=== PATIENT | male | born 1955 ===

== ENCOUNTER → 2023-05-22 09:47 | Outpatient (REF) | payer OTHER, SELFPAY ==
[2023-05-22 10:54] LABS: % Basophils 0.4 % (0-2); % Eosinophils 1.3 % (0-6); % Immature Granulocytes 0.2 % (0-0.5); % Lymphocytes 22.3 % (20.5-51.1); % Monocytes 7.1 % (1.7-9.3); % Neutrophils 68.7 % (42.2-75.2); Absolute Eosinophils 0.1 10^3/uL (0-0.7); Absolute Lymphocytes 1.2 10^3/uL (1.2-3.4); Absolute Monocytes 0.4 10^3/uL (0.1-0.6); Absolute Neutrophils 3.6 10^3/uL (1.4-6.5); Hematocrit 37.6 % (39.0-52.0); Hemoglobin 12.9 g/dL (13.0-18.0); Mean Corp Hgb Conc. 34.3 g/dL (33.0-37.0); Mean Corpuscular Hgb 33.2 pg (27.0-31.0); Mean Corpuscular Volume 96.7 fL (80.0-94.0); Mean Platelet Volume 12.9 fL (7.4-10.4); Nucleated Red Blood Cells % 0 % (-); Platelet Count 146 10^3/uL (130-400); Red Blood Cell Count 3.89 10^6/uL (4.70-6.10); Red Cell Dist. Width 12.8 % (11.5-14.5); White Blood Cell Count 5.2 10^3/uL (4.8-10.8)
[2023-05-22 11:30] LABS: ALT (SGPT) < 10 U/L (0-50); AST (SGOT) 25 U/L (17-59); Albumin 3.2 g/dl (3.5-5.0); Alkaline Phosphatase 72 U/L (38-126); Blood Urea Nitrogen 16 mg/dl (9-20); Carbon Dioxide 25 mmol/L (22-30); Chloride 108 mmol/L (98-107); Glucose 86 mg/dl (70-99); Sodium 140 mmol/L (135-145); Total Bilirubin 0.9 mg/dl (0.2-1.3); Total Protein 5.6 g/dl (6.3-8.2); eGFR > 60.00
[2023-05-22 11:59] LABS: TSH 1.48 uIU/ml (0.47-4.68)
== END ==
LOC: OLABPATH 09:47
PROVIDERS: ATTENDING PHYSICIAN Internal Medicine
DX: E03.0 Congenital hypothyroidism with diffuse goiter (principal); G31.84 Mild cognitive impairment of uncertain or unknown etiology; D69.6 Thrombocytopenia, unspecified
CPT/HCPCS: 36415; 80053; 84443; 85025

== ENCOUNTER → 2023-08-21 12:32 | Outpatient (REF) | payer MEDICARE, SELFPAY ==
[2023-08-21 12:54] LABS: % Basophils 0.5 % (0-2); % Immature Granulocytes 0.2 % (0-0.5); % Lymphocytes 18.7 % (20.5-51.1); % Monocytes 7.6 % (1.7-9.3); Absolute Eosinophils 0.1 10^3/uL (0-0.7); Absolute Lymphocytes 0.8 10^3/uL (1.2-3.4); Absolute Monocytes 0.3 10^3/uL (0.1-0.6); Absolute Neutrophils 2.9 10^3/uL (1.4-6.5); Hematocrit 39.2 % (39.0-52.0); Hemoglobin 13.9 g/dL (13.0-18.0); Mean Corp Hgb Conc. 35.5 g/dL (33.0-37.0); Mean Corpuscular Hgb 33.6 pg (27.0-31.0); Mean Corpuscular Volume 94.7 fL (80.0-94.0); Mean Platelet Volume 12.3 fL (7.4-10.4); Nucleated Red Blood Cells % 0 % (-); Platelet Count 141 10^3/uL (130-400); Red Blood Cell Count 4.14 10^6/uL (4.70-6.10); Red Cell Dist. Width 13.2 % (11.5-14.5); White Blood Cell Count 4.1 10^3/uL (4.8-10.8)
[2023-08-21 13:08] LABS: ALT (SGPT) < 10 U/L (0-50); AST (SGOT) 25 U/L (17-59); Albumin 3.4 g/dl (3.5-5.0); Alkaline Phosphatase 98 U/L (38-126); Blood Urea Nitrogen 16 mg/dl (9-20); Calcium 8.8 mg/dl (8.4-10.2); Carbon Dioxide 25 mmol/L (22-30); Chloride 110 mmol/L (98-107); Glucose 110 mg/dl (70-99); Potassium 3.7 mmol/L (3.5-5.1); Sodium 140 mmol/L (135-145); Total Bilirubin 0.5 mg/dl (0.2-1.3); Total Protein 5.8 g/dl (6.3-8.2); eGFR > 60.00
[2023-08-21 13:17] LABS: Prealbumin (Transthyretin) 21.2 mg/dl (17.6-36.0)
== END ==
LOC: OLABPATH 12:32
PROVIDERS: ATTENDING PHYSICIAN Internal Medicine
DX: E03.9 Hypothyroidism, unspecified (principal); E78.5 Hyperlipidemia, unspecified
CPT/HCPCS: 36415; 80053; 84134; 84443; 85025

== ENCOUNTER → 2024-01-01 10:16 | Outpatient (REF) | payer MEDICARE, SELFPAY ==
[2024-01-01 10:50] LABS: % Basophils 0.2 % (0-2); % Eosinophils 0.4 % (0-6); % Immature Granulocytes 0.4 % (0-0.5); % Lymphocytes 6.7 % (20.5-51.1); % Monocytes 4.9 % (1.7-9.3); % Neutrophils 87.4 % (42.2-75.2); Absolute Lymphocytes 0.6 10^3/uL (1.2-3.4); Absolute Monocytes 0.5 10^3/uL (0.1-0.6); Hematocrit 35.6 % (39.0-52.0); Hemoglobin 12.2 g/dL (13.0-18.0); Mean Corp Hgb Conc. 34.3 g/dL (33.0-37.0); Mean Corpuscular Hgb 34.2 pg (27.0-31.0); Mean Corpuscular Volume 99.7 fL (80.0-94.0); Mean Platelet Volume 12.1 fL (7.4-10.4); Nucleated Red Blood Cells % 0 % (-); Platelet Count 270 10^3/uL (130-400); Red Blood Cell Count 3.57 10^6/uL (4.70-6.10); Red Cell Dist. Width 13.1 % (11.5-14.5); White Blood Cell Count 9.1 10^3/uL (4.8-10.8)
[2024-01-01 10:59] LABS: ALT (SGPT) < 10 U/L (0-50); AST (SGOT) 22 U/L (17-59); Albumin 2.8 g/dl (3.5-5.0); Alkaline Phosphatase 96 U/L (38-126); Blood Urea Nitrogen 19 mg/dl (9-20); Calcium 7.9 mg/dl (8.4-10.2); Carbon Dioxide 30 mmol/L (22-30); Chloride 102 mmol/L (98-107); Glucose 82 mg/dl (70-99); Potassium 3.5 mmol/L (3.5-5.1); Sodium 140 mmol/L (135-145); Total Bilirubin 1.1 mg/dl (0.2-1.3); Total Protein 5.2 g/dl (6.3-8.2); eGFR > 60.00
[2024-01-01 11:27] LABS: TSH 1.39 uIU/ml (0.47-4.68)
== END ==
LOC: OLABPATH 10:16
PROVIDERS: ATTENDING PHYSICIAN Internal Medicine
DX: R94.6 Abnormal results of thyroid function studies (principal); R68.89 Other general symptoms and signs; Z13.228 Encounter for screening for other metabolic disorders
CPT/HCPCS: 36415; 80053; 84443; 85025

== ENCOUNTER → 2024-01-06 09:47 | Outpatient (REF) | payer MEDICARE, SELFPAY ==
[2024-01-06 10:32] LABS: % Basophils 0.2 % (0-2); % Eosinophils 1.1 % (0-6); % Immature Granulocytes 0.5 % (0-0.5); % Lymphocytes 15.7 % (20.5-51.1); % Monocytes 6.9 % (1.7-9.3); % Neutrophils 75.6 % (42.2-75.2); Absolute Eosinophils 0.1 10^3/uL (0-0.7); Absolute Lymphocytes 0.9 10^3/uL (1.2-3.4); Absolute Monocytes 0.4 10^3/uL (0.1-0.6); Absolute Neutrophils 4.2 10^3/uL (1.4-6.5); Hematocrit 39.5 % (39.0-52.0); Hemoglobin 12.8 g/dL (13.0-18.0); Mean Corp Hgb Conc. 32.4 g/dL (33.0-37.0); Mean Corpuscular Hgb 32.7 pg (27.0-31.0); Mean Corpuscular Volume 100.8 fL (80.0-94.0); Mean Platelet Volume 11.8 fL (7.4-10.4); Nucleated Red Blood Cells % 0 % (-); Platelet Count 402 10^3/uL (130-400); Red Blood Cell Count 3.92 10^6/uL (4.70-6.10); White Blood Cell Count 5.5 10^3/uL (4.8-10.8)
[2024-01-06 10:49] LABS: ALT (SGPT) 10 U/L (0-50); AST (SGOT) 25 U/L (17-59); Albumin 2.9 g/dl (3.5-5.0); Alkaline Phosphatase 98 U/L (38-126); Blood Urea Nitrogen 16 mg/dl (9-20); Calcium 8.5 mg/dl (8.4-10.2); Carbon Dioxide 27 mmol/L (22-30); Chloride 105 mmol/L (98-107); Glucose 88 mg/dl (70-99); Potassium 4.3 mmol/L (3.5-5.1); Sodium 142 mmol/L (135-145); Total Bilirubin 0.8 mg/dl (0.2-1.3); Total Protein 5.6 g/dl (6.3-8.2); eGFR > 60.00
== END ==
LOC: OLABPATH 09:47
PROVIDERS: ATTENDING PHYSICIAN Internal Medicine
DX: Z13.220 Encounter for screening for lipoid disorders (principal); R68.89 Other general symptoms and signs
CPT/HCPCS: 36415; 80053; 85025

== ENCOUNTER 2024-03-19 21:38 | Inpatient (IN) | payer MEDICARE, SELFPAY ==
--- NOTE | 2024-03-19 19:00 | ED.GENMED ---
History of Present Illness
<LAVONNE Snow - Last Filed: 03/20/24 03:01>
General
Chief Complaint: Fever
Source: patient
Exam Limitations: none
Time Seen by Provider: 03/19/24 18:49
Nursing documentation reviewed up to this point in time: agreed with
History of Present Illness
History of Present Illness:
68 yr old male sent from the [facility] for fevers of 100.2 vomiting(4 episodes on Saturday) weakness rigors. Pt has a hx of hypothyroidism BPH mild neurocognitive disorder, Parkinsons .
Nurse reports he has not had any tylenol /motrin for fever.
Patient is able to nod his head yes and no however not able to give history. Patient is not ambulatory. Brother at bedside.
Review of Systems
<LAVONNE Snow - Last Filed: 03/20/24 03:01>
Review of Systems
Allergies reviewed?: Yes
Other source history: family and retirement
All Other Systems: ROS reviewed and negative except as documented in HPI and ROS
Constitutional: Reports fever and chills
EENT: Reports no symptoms
Respiratory: Reports cough
Cardiac: Reports no symptoms
ABD/GI: Reports nausea, vomiting and diarrhea
Musculoskeletal: Reports no symptoms
Skin: Reports no symptoms
Psychiatric: Reports no symptoms
Phy Exam
<LAVONNE Snow - Last Filed: 03/20/24 03:01>
General Physical Exam
General Presentation: moderate distress
General age: appears stated age
General Skin: warm and dry
General Habitus: elderly
General Mental: alert
General Hydration: dry mucous membranes
Cardiovascular Exam
Cardiovascular Exam: tachycardia
Pulmonary Exam
Pulmonary Exam: lungs clear and other (+ cough , + hypoxic on room air )
Gastrointestinal Exam
Gastrointestinal Exam: non tender and soft
Neurological Exam
Neurological Exam: alert and other (Awake alert tries to answer questions yes or no answers shakes his head accordingly, follows commands)
Musculoskeletal Exam
Musculoskeletal Exam: full ROM
Skin Exam
Skin Exam: normal color and warm/dry
Psychiatric Exam
Psychiatric Exam: normal mood/affect
Course
<LAVONNE Snow - Last Filed: 03/20/24 03:01>
Orders/Labs/Results
Orders:
Orders
03/19/24 Dinner
Regular
At Your Request: Limited, Trial Court Judge Required
03/19/24 18:58
COVID-19 Antigen Urgent
Source: Nasal Swab
Complete Blood Count/With Diff Urgent
Comprehensive Metabolic Panel Urgent
Manual Differential Urgent
Influenza A+B Rapid Molecular Urgent
CAESAR Source: Nasal Swab
Specimen Description:
Date Specimen was Collected: 03/19/24
Time Specimen was Collected: 18:47
03/19/24 19:02
Chest X-ray Portable [CR Chest Portable - 1 View] Urgent
Comment:
Reason For Exam: hypoxic
Reason Study Needs to be Portable: Patient Unstable
03/19/24 19:05
Lactic Acid Urgent
03/19/24 19:07
Acetaminophen [Tylenol] 650 mg PO NOW STA
03/19/24 19:20
Acetaminophen [Tylenol/Feverall] 650 mg .ROUTE .STK-MED ONE
03/19/24 19:23
0.9% Sodium Chloride 1000 ml [Nss] 1,000 ml IV BOLUS
03/19/24 19:24
0.9% Sodium Chloride 1000 ml [Nss] 1,000 ml IV BOLUS
03/19/24 19:33
Acetaminophen [Tylenol/Feverall] 325 mg RECTAL NOW STA
03/19/24 20:11
Oseltamivir [Tamiflu] 75 mg PO NOW STA
03/19/24 20:52
Electrocardiogram (*1) Stat
Reason for Study: Other
Other Reason for Exam: chest pain
EKG- Treatment ONCE
03/19/24 21:07
Admit/Transfer Patient As Directed
Co-Sign Provider:
Level of Care: Inpatient admission
Assign to:: IMU- Intermediate Care
Physician / Group: julia
Diagnosis: influenza
Reason for Hospitalization: influenza
Expected length of stay greater than two midnights?: Yes
ELOS- Estimated Length of Stay in days: 2
I certify the patient meets the requirements for IP care: Yes
03/19/24 21:08
PRN Pain Medication Management As Directed
May give lesser potent ordered pain med per pt: Yes
preference::
Protocol:: Medication orders for pain may be administered in a
manner that supports deferring to patient preference
when the pt is:
- Requesting an ordered lesser potent pain medication.
Least to most potent pain medications are defined
as: acetaminophen < NSAID < tramadol < opioids
(morphine, oxycodone, hydromorphone).
- Requesting a lesser dose of the same medication IF
ORDERED.
- Requesting a less intrusive route of administration
if both routes are prescribed by the provider (PO <
IV).
03/19/24 21:09
Code Status As Directed
Resuscitation Status: Do not resuscitate
Reached after discussion with pt or family/Healthcare POA: Yes
DNR Bracelet Application ONCE
03/19/24 21:19
Blood Culture Q30M
CAESAR Source: Blood/Venous
Specimen Description:
Blood Culture Q30M
CAESAR Source: Blood/Venous
Specimen Description:
03/19/24 22:32
0.9% Sodium Chloride 1000 ml [Nss] 1,000 ml IV 100 mls/hr
Acetaminophen [Tylenol] 650 mg PO Q4HPRN PRN
Ondansetron Injectable [Zofran] 4 mg IV Q6HPRN PRN
03/19/24 22:32
Activity As Directed
Activity Level: As Tolerated
Vital Signs As Directed
Frequency: Per unit guidelines
DX Deep Vein Thrombosis Video Routine
03/20/24 06:00
Complete Blood Count/With Diff IN AM
Comprehensive Metabolic Panel IN AM
03/20/24 08:00
Heparin 5,000 units SC Q12
Oseltamivir Phosphate [Tamiflu] 75 mg PO BID
Abnormal Lab Results
03/19/24 03/19/24
18:58 19:05
WBC 3.6 L 10^3/uL
(4.8-10.8)
MCV 96.7 H fL
(80.0-94.0)
MCH 32.9 H pg
(27.0-31.0)
MPV 11.6 H fL
(7.4-10.4)
Absolute Lymphs (auto) 0.2 L 10^3/uL
(1.2-3.4)
Immature Gran % 0.6 H %
(0-0.5)
Neutrophils % 90.0 H %
(42.2-75.2)
Lymphocytes % 5.5 L %
(20.5-51.1)
Segmented Neutrophils 79 H %
(42-75)
Band Neutrophils 10 H %
(0-3)
Lymphocytes (Manual) 6 L %
(20-51)
Chloride 97 L mmol/L
(98-107)
BUN 27 H mg/dl
(9-20)
Glucose 138 H mg/dl
(70-99)
Lactic Acid 3.4 H mmol/L
(0.7-2.0)
Total Bilirubin 1.9 H mg/dl
(0.2-1.3)
AST 70 H U/L
(17-59)
03/19/24 18:58
03/19/24 18:58
Vital Signs
Initial and Last Documented VS:
Initial Vital Signs
Temp Pulse Resp Pulse Ox
99.7 F 145 18 79
03/19/24 18:38 03/19/24 18:38 03/19/24 18:38 03/19/24 18:38
Last Documented Vital Signs
Temp Pulse Resp BP Pulse Ox
100.1 F 116 31 138/77 92
03/20/24 01:00 03/20/24 01:45 03/20/24 01:45 03/20/24 01:00 03/20/24 02:39
Shrimp Picker consulted with Physician
Shrimp Picker consulted with physician?: Yes
Name of Physician Consulted: Wiley
<Vishnu Jama MD - Last Filed: 03/19/24 19:45>
Orders/Labs/Results
Orders:
Orders
03/19/24 Dinner
Regular
At Your Request: Limited, Trial Court Judge Required
03/19/24 18:58
COVID-19 Antigen Urgent
Source: Nasal Swab
Complete Blood Count/With Diff Urgent
Comprehensive Metabolic Panel Urgent
Manual Differential Urgent
Influenza A+B Rapid Molecular Urgent
CAESAR Source: Nasal Swab
Specimen Description:
Date Specimen was Collected: 03/19/24
Time Specimen was Collected: 18:47
03/19/24 19:02
Chest X-ray Portable [CR Chest Portable - 1 View] Urgent
Comment:
Reason For Exam: hypoxic
Reason Study Needs to be Portable: Patient Unstable
03/19/24 19:05
Lactic Acid Urgent
03/19/24 19:07
Acetaminophen [Tylenol] 650 mg PO NOW STA
03/19/24 19:20
Acetaminophen [Tylenol/Feverall] 650 mg .ROUTE .STK-MED ONE
03/19/24 19:23
0.9% Sodium Chloride 1000 ml [Nss] 1,000 ml IV BOLUS
03/19/24 19:24
0.9% Sodium Chloride 1000 ml [Nss] 1,000 ml IV BOLUS
03/19/24 19:33
Acetaminophen [Tylenol/Feverall] 325 mg RECTAL NOW STA
03/19/24 20:11
Oseltamivir [Tamiflu] 75 mg PO NOW STA
03/19/24 20:52
Electrocardiogram (*1) Stat
Reason for Study: Other
Other Reason for Exam: chest pain
EKG- Treatment ONCE
03/19/24 21:07
Admit/Transfer Patient As Directed
Co-Sign Provider:
Level of Care: Inpatient admission
Assign to:: IMU- Intermediate Care
Physician / Group: julia
Diagnosis: influenza
Reason for Hospitalization: influenza
Expected length of stay greater than two midnights?: Yes
ELOS- Estimated Length of Stay in days: 2
I certify the patient meets the requirements for IP care: Yes
03/19/24 21:08
PRN Pain Medication Management As Directed
May give lesser potent ordered pain med per pt: Yes
preference::
Protocol:: Medication orders for pain may be administered in a
manner that supports deferring to patient preference
when the pt is:
- Requesting an ordered lesser potent pain medication.
Least to most potent pain medications are defined
as: acetaminophen < NSAID < tramadol < opioids
(morphine, oxycodone, hydromorphone).
- Requesting a lesser dose of the same medication IF
ORDERED.
- Requesting a less intrusive route of administration
if both routes are prescribed by the provider (PO <
IV).
03/19/24 21:09
Code Status As Directed
Resuscitation Status: Do not resuscitate
Reached after discussion with pt or family/Healthcare POA: Yes
DNR Bracelet Application ONCE
03/19/24 21:19
Blood Culture Q30M
CAESAR Source: Blood/Venous
Specimen Description:
Blood Culture Q30M
CAESAR Source: Blood/Venous
Specimen Description:
03/19/24 22:32
0.9% Sodium Chloride 1000 ml [Nss] 1,000 ml IV 100 mls/hr
Acetaminophen [Tylenol] 650 mg PO Q4HPRN PRN
Ondansetron Injectable [Zofran] 4 mg IV Q6HPRN PRN
03/19/24 22:32
Activity As Directed
Activity Level: As Tolerated
Vital Signs As Directed
Frequency: Per unit guidelines
DX Deep Vein Thrombosis Video Routine
03/20/24 06:00
Complete Blood Count/With Diff IN AM
Comprehensive Metabolic Panel IN AM
03/20/24 08:00
Heparin 5,000 units SC Q12
Oseltamivir Phosphate [Tamiflu] 75 mg PO BID
Abnormal Lab Results
03/19/24 03/19/24
18:58 19:05
WBC 3.6 L 10^3/uL
(4.8-10.8)
MCV 96.7 H fL
(80.0-94.0)
MCH 32.9 H pg
(27.0-31.0)
MPV 11.6 H fL
(7.4-10.4)
Absolute Lymphs (auto) 0.2 L 10^3/uL
(1.2-3.4)
Immature Gran % 0.6 H %
(0-0.5)
Neutrophils % 90.0 H %
(42.2-75.2)
Lymphocytes % 5.5 L %
(20.5-51.1)
Segmented Neutrophils 79 H %
(42-75)
Band Neutrophils 10 H %
(0-3)
Lymphocytes (Manual) 6 L %
(20-51)
Chloride 97 L mmol/L
(98-107)
BUN 27 H mg/dl
(9-20)
Glucose 138 H mg/dl
(70-99)
Lactic Acid 3.4 H mmol/L
(0.7-2.0)
Total Bilirubin 1.9 H mg/dl
(0.2-1.3)
AST 70 H U/L
(17-59)
03/19/24 18:58
03/19/24 18:58
Vital Signs
Initial and Last Documented VS:
Initial Vital Signs
Temp Pulse Resp Pulse Ox
99.7 F 145 18 79
03/19/24 18:38 03/19/24 18:38 03/19/24 18:38 03/19/24 18:38
Last Documented Vital Signs
Temp Pulse Resp BP Pulse Ox
100.1 F 116 31 138/77 92
03/20/24 01:00 03/20/24 01:45 03/20/24 01:45 03/20/24 01:00 03/20/24 02:39
<LAVONNE Snow - Last Filed: 03/20/24 03:01>
MDM/Problems Addressed
Differential Diagnosis Includes:
Not limited to pneumonia, COVID, influenza, norovirus, sepsis, dehydration
MDM/Problems Addressed:
Patient is a 68-year-old male with history of Parkinson's memory issues from the retirement presents for fevers and vomiting which started Saturday. Patient presented with obvious rigors found to have a fever of 105.5 rectally. Patient was not
given Tylenol or Motrin prior to arrival. Patient is able to shake his head for yes or no answers. He does have an audible cough he denies shortness of breath however presents tachycardic and hypoxic. Patient was given Tylenol both orally and
rectally he did have difficulty initially swallowing oral Tylenol and therefore rectal was given. Patient was found to be influenza positive with a white count of 3.6. His lactate was found to be 3.4 with an elevated BUN of 27. Sepsis fluids
were initiated. PT was evaluated by DR Jama . With pt's hypoxia, mid flow was ordered.
Pt did improve after tylenol, rigors improved. Tachycardia did improve though still tachycardic. X-ray reviewed no obvious infiltrate
Pt still hypoxic at 85 % on 15 l Midflow. d/c with DR Jama will increase to high Flow.
Patient admitted to the hospitalist service to the ICU. Brother at bedside reviewed all findings with brother. Not limited to
<LAVONNE Snow - Last Filed: 03/20/24 03:01>
*Radiology
Radiology exam reviewed: radiology read reviewed
*Pulse Oximetry
Patient hypoxic: yes
*Critical Care Note
Total Time (30-74mins, 75-104mins- exclusive of procedures): Not Applicable
ED Attending Note
<LAVONNE Snow - Last Filed: 03/20/24 03:01>
-
Portions of this chart may have been created with voice recognition software.� Occasional wrong word or��sound alike� substitutions may have occurred due to the inherent limitations of voice recognition software.
<Vishnu Jama MD - Last Filed: 03/19/24 19:45>
ED Attending Note
Patient seen and examined by attending physician: Yes
ED Attending Note:
Patient with history of dementia and Parkinson's disease, presents to ED secondary to sudden onset of fever, chills, rigors, and decreased appetite, along with intermittent cough, upon waking up this morning. 3 days ago, patient had brief episode
of multiple vomiting episodes, which resolved spontaneously. Denies nausea, vomiting, or diarrhea. Denies headache. Denies sore throat. Denies back pain. Denies leg pain or swelling. Denies sick contact.
Physical Exam
General: moderate distress, acutely ill. febrile. tachycardic
Head: nc/at. eomi
Neck: supple. no meningeal signs.
Heart: tachycardic, no murmur.
Lungs: mild respiratory distress. clear bilaterally
Abdomen: normal bowel sounds. not tender.
Neuro: alert and oriented x 2. no focal neurological deficits
Skin: no rash
Psychiatric: well kept. interactive and cooperative
Extremities: no edema. no calf tenderness.
History and exam consistent with hypoxia, likely second to influenza. Secondary to significant hypoxia not responding to supplemental oxygen via nasal cannula, patient placed on mid flow oxygen, with improvement. Patient will be started on Tamiflu
and be admitted for further evaluation and treatment.
Discharge Plan
Departure
Patient Disposition: Admit
Date of Disposition: 03/19/24
Time of Disposition: 20:46
Admit to: ICU
Admit to doctor: hospitalist
Presentation/result/management discussed w/ accepting MD/DO: Hospitalist
Patient with high blood pressure during this ER visit?: No
Condition: Fair
Covid-19: Negative COVID-19
Discharge Problem:
Influenza A, hypoxia
Interventions
Interventions:
*Risk Screen - Suicide Last Done: 03/19/24 19:46
*General Assessment Last Done: 03/19/24 18:46
*Neglect/Abuse Screening Last Done: 03/19/24 19:46
*ED COVID-19 Vaccine History Last Done: 03/19/24 19:46
ED- Neurological Assessment Last Done: 03/19/24 19:45
ED-Skin Assessment Last Done: 03/19/24 18:45
[2024-03-19 19:15] VITALS: BMI 22.0
[2024-03-19] MEDS: NSS 1000 IV ×3 (19:25→22:54)
[2024-03-19 19:26] LABS: ALT (SGPT) 12 U/L (0-50); AST (SGOT) 70 U/L (17-59); Albumin 4.4 g/dl (3.5-5.0); Alkaline Phosphatase 80 U/L (38-126); Blood Urea Nitrogen 27 mg/dl (9-20); COVID-19 Antigen Negative (Negative); Calcium 9.6 mg/dl (8.4-10.2); Carbon Dioxide 28 mmol/L (22-30); Chloride 97 mmol/L (98-107); Estimated Creatinine Clearance 75 ml/min; Glucose 138 mg/dl (70-99); Sodium 135 mmol/L (135-145); Total Bilirubin 1.9 mg/dl (0.2-1.3); Total Protein 7.4 g/dl (6.3-8.2); eGFR > 60.00
[2024-03-19 19:29] LABS: Lactic Acid 3.4 mmol/L (0.7-2.0)
[2024-03-19] MEDS: TYLENOL 325 MG PO (19:31)
[2024-03-19 19:37] LABS: Absolute Neutrophils -Man Diff 3.2 10^3/uL (1.4-6.5); Band Neutrophils 10 % (0-3); Hematocrit 50.6 % (39.0-52.0); Hemoglobin 17.2 g/dL (13.0-18.0); Lymphocytes 6 % (20-51); Mean Corpuscular Hgb 32.9 pg (27.0-31.0); Mean Corpuscular Volume 96.7 fL (80.0-94.0); Mean Platelet Volume 11.6 fL (7.4-10.4); Monocytes 5 % (2-9); Platelet Count 160 10^3/uL (130-400); Red Blood Cell Count 5.23 10^6/uL (4.70-6.10); Red Cell Dist. Width 14.2 % (11.5-14.5); Segmented Neutrophils 79 % (42-75); White Blood Cell Count 3.6 10^3/uL (4.8-10.8)
[2024-03-19 19:38] LABS: Normal RBC Morphology No; Platelets Checked Yes
[2024-03-19 19:39] LABS: % Basophils 0.6 % (0-2); % Immature Granulocytes 0.6 % (0-0.5); % Lymphocytes 5.5 % (20.5-51.1); % Monocytes 3.3 % (1.7-9.3); Absolute Lymphocytes 0.2 10^3/uL (1.2-3.4); Absolute Monocytes 0.1 10^3/uL (0.1-0.6); Absolute Neutrophils 3.3 10^3/uL (1.4-6.5); Anisocytosis 1+; Nucleated Red Blood Cells % 0 % (-); Polychromasia Slight; Total Cells Counted 100
[2024-03-19] MEDS: TYLENOL/FEVERALL 325 MG RECTAL (19:43)
[2024-03-19] MEDS: TAMIFLU 75 MG PO (20:44)
[2024-03-19 20:47] VITALS: BP 115/67
[2024-03-19 21:00] VITALS: BP 124/101
--- NOTE | 2024-03-19 21:12 | HPS.HSE ---
Family Physician
-
Family Physician: Jeremiah Knight
Chief Complaint
-
fever
History of Present Illness
fever, vomiting
Medical History
Past Medical History
Past Medical History: Reports Other ( memory impairment, Parkinson's disease, hypothyroidism, BPH, hypercholesteremia)
Past Surgical History: Reports None
Social History
Tobacco: Non-smoker
Alcohol: None
Drug: None
Family History
Family History: Not pertinent
Allergies / Home Medications
Allergies reflects when Allergies were last updated in [employer].
Home Medications with original date entered in [employer]
Allergy/Medication List:
Allergies
Allergy/AdvReac Type Severity Reaction Status Date / Time
No Known Allergies Allergy Verified 03/19/24 18:46
Review of Systems
-
History Source: Patient
A 12 point ROS was completed and negative except as noted: Yes
Constitutional: Reports No Symptoms
EENT: Reports No Symptoms
Respiratory: Reports No Symptoms
Cardiac: Reports No Symptoms
Abdomen/GI: Reports No Symptoms
: Reports No Symptoms
Musculoskeletal: Reports No Symptoms
Skin: Reports No Symptoms
Neurological: Reports No Symptoms
Endocrine: Reports No Symptoms
Hematologic/Lymphatic: Reports No Symptoms
Psych: Reports No Symptoms
Physical Exam
Vital Signs
Vital Signs
Temp Pulse Resp BP Pulse Ox
105.5 F H 128 27 115/67 87
03/19/24 18:57 03/19/24 20:45 03/19/24 20:45 03/19/24 20:47 03/19/24 20:45
Physical Exam
General: Well Developed, Well Nourished and No Apparent Distress
HEENT: NormoCephalic, Moist mucous membranes and Atraumatic
Respiratory: Clear
Cardiac: S1/S2 and Regular Rhythm; No Murmur or Rub
GI: Soft, Non Tender, Non Distended and Normal Bowel Sounds; No Organomegaly
Rectal: Deferred by Provider
Musculoskeletal: No Clubbing, No Cyanosis and No Edema
Skin: No Rash
Neuro: Nonfocal/grossly intact
Laboratory Results
-
03/19/24 18:58
03/19/24 18:58
Laboratory Results
Lactic Acid 3.4 mmol/L (0.7-2.0) H 03/19/24 19:05
Total Bilirubin 1.9 mg/dl (0.2-1.3) H 03/19/24 18:58
AST 70 U/L (17-59) H 03/19/24 18:58
ALT 12 U/L (0-50) 03/19/24 18:58
Alkaline Phosphatase 80 U/L (38-126) 03/19/24 18:58
Data Reviewed
-
Lab Data: Labs Reviewed by me
Old Records: Reviewed
Impression/Plan
-
IMPRESSION:
PLAN:
# Sepsis (leukopenia, fever, tachycardia, tachypnea)/hypoxemic respiratory failure secondary to influenza
-Influenza A positive
-Patient requiring high flow oxygen
-Chest x-ray shows probable mild left lower lobe atelectasis, developing pneumonia cannot be excluded
-IV fluids
-Blood cultures
-Tamiflu
History of memory impairment/depression
-Continue mirtazapine
Parkinson's disease
-Continue carbidopa-levodopa
Hypothyroidism
-Continue levothyroxine
BPH
Hypercholesterolemia
-Continue statin
DNR/DNI
DVT prophylaxis�heparin
Regular diet
--- NOTE | 2024-03-19 21:14 | HPS.HSE ---
Family Physician
-
Family Physician: Jeremiah Knight
Chief Complaint
-
fever
History of Present Illness
68-year-old male past medical history of memory impairment, Parkinson's disease, hypothyroidism, BPH, hypercholesteremia presenting from [facility] [place] with with fever, nausea and vomiting and rigors and hypoxemia to 80% on room air. He
denies any diarrhea or abdominal pain. He denies chest pain.
Denies smoking or alcohol use.
Medical History
Past Medical History
Past Medical History: Reports Other (memory impairment, Parkinson's disease, hypothyroidism, BPH, hypercholesteremia)
Past Surgical History: Reports None
Social History
Tobacco: Non-smoker
Alcohol: None
Drug: None
Family History
Family History: Not pertinent
Allergies / Home Medications
Allergies reflects when Allergies were last updated in [employer].
Home Medications with original date entered in [employer]
Allergy/Medication List:
Allergies
Allergy/AdvReac Type Severity Reaction Status Date / Time
No Known Allergies Allergy Verified 03/19/24 18:46
Review of Systems
-
History Source: Patient
A 12 point ROS was completed and negative except as noted: Yes
Constitutional: Reports No Symptoms
EENT: Reports No Symptoms
Respiratory: Reports No Symptoms
Cardiac: Reports No Symptoms
Abdomen/GI: Reports No Symptoms
: Reports No Symptoms
Musculoskeletal: Reports No Symptoms
Skin: Reports No Symptoms
Neurological: Reports No Symptoms
Endocrine: Reports No Symptoms
Hematologic/Lymphatic: Reports No Symptoms
Psych: Reports No Symptoms
Physical Exam
Vital Signs
Vital Signs
Temp Pulse Resp BP Pulse Ox
105.5 F H 128 27 115/67 87
03/19/24 18:57 03/19/24 20:45 03/19/24 20:45 03/19/24 20:47 03/19/24 20:45
Physical Exam
General: Well Developed, Well Nourished and No Apparent Distress
HEENT: NormoCephalic, Moist mucous membranes and Atraumatic
Respiratory: Clear
Cardiac: S1/S2 and Regular Rhythm; No Murmur or Rub
GI: Soft, Non Tender, Non Distended and Normal Bowel Sounds; No Organomegaly
Rectal: Deferred by Provider
Musculoskeletal: No Clubbing, No Cyanosis and No Edema
Skin: No Rash
Neuro: Nonfocal/grossly intact
Laboratory Results
-
03/19/24 18:58
03/19/24 18:58
Laboratory Results
Lactic Acid 3.4 mmol/L (0.7-2.0) H 03/19/24 19:05
Total Bilirubin 1.9 mg/dl (0.2-1.3) H 03/19/24 18:58
AST 70 U/L (17-59) H 03/19/24 18:58
ALT 12 U/L (0-50) 03/19/24 18:58
Alkaline Phosphatase 80 U/L (38-126) 03/19/24 18:58
Data Reviewed
-
Lab Data: Labs Reviewed by me
Old Records: Reviewed
Impression/Plan
-
IMPRESSION:
PLAN:
# Sepsis (leukopenia, fever, tachycardia, tachypnea)/hypoxemic respiratory failure secondary to influenza
-Influenza A positive
-Patient requiring high flow oxygen
-Chest x-ray shows probable mild left lower lobe atelectasis, developing pneumonia cannot be excluded
-IV fluids
-Blood cultures
-Tamiflu
History of memory impairment/depression
-Continue mirtazapine
Parkinson's disease
-Continue carbidopa-levodopa
Hypothyroidism
-Continue levothyroxine
BPH
Hypercholesterolemia
-Continue statin
DNR/DNI
DVT prophylaxis�heparin
Regular diet
[2024-03-19 22:00] VITALS: BP 135/77
[2024-03-19 23:00] VITALS: BP 149/92
[2024-03-20] VITALS (20 sets, daily range): BP systolic 97–146; BP diastolic 60–90; BMI 20.8
[2024-03-20 03:13] LABS: Lactic Acid 1.2 mmol/L (0.7-2.0)
[2024-03-20 06:04] LABS: Hematocrit 41.1 % (39.0-52.0); Hemoglobin 13.9 g/dL (13.0-18.0); Mean Corp Hgb Conc. 33.8 g/dL (33.0-37.0); Mean Corpuscular Hgb 33.2 pg (27.0-31.0); Mean Corpuscular Volume 98.1 fL (80.0-94.0); Mean Platelet Volume 11.6 fL (7.4-10.4); Platelet Count 110 10^3/uL (130-400); Red Blood Cell Count 4.19 10^6/uL (4.70-6.10); Red Cell Dist. Width 14.3 % (11.5-14.5)
[2024-03-20 06:21] LABS: ALT (SGPT) 19 U/L (0-50); AST (SGOT) 67 U/L (17-59); Albumin 2.9 g/dl (3.5-5.0); Alkaline Phosphatase 77 U/L (38-126); Blood Urea Nitrogen 25 mg/dl (9-20); Calcium 8.4 mg/dl (8.4-10.2); Carbon Dioxide 29 mmol/L (22-30); Chloride 103 mmol/L (98-107); Estimated Creatinine Clearance 75 ml/min; Glucose 111 mg/dl (70-99); Potassium 4.1 mmol/L (3.5-5.1); Sodium 141 mmol/L (135-145); Total Bilirubin 1.6 mg/dl (0.2-1.3); Total Protein 5.5 g/dl (6.3-8.2); eGFR > 60.00
[2024-03-20 06:39] LABS: Absolute Neutrophils -Man Diff 2.3 10^3/uL (1.4-6.5); Band Neutrophils 12 % (0-3); Lymphocytes 18 % (20-51); Monocytes 5 % (2-9); Normal RBC Morphology Yes; Platelets Checked Yes; Segmented Neutrophils 65 % (42-75); Total Cells Counted 100
[2024-03-20] MEDS: SYNTHROID 75 MCG PO (07:41)
[2024-03-20] MEDS: HEPARIN 5000 UNITS SC ×2 (07:41→20:42)
[2024-03-20] MEDS: SINEMET 25-100 1 TABLET PO (07:41)
[2024-03-20] MEDS: TYLENOL/FEVERALL 650 MG RECTAL ×2 (07:42→15:31)
[2024-03-20] MEDS: TAMIFLU 75 MG PO ×2 (07:42→20:41)
--- NOTE | 2024-03-20 08:17 | W.PN.HOSP.TC ---
Today's Communication/Plan
-
Start ceftriaxone/doxy. C/w tamiflu, IV fluids, tylenol. Pending sputum/blood cx.
Assessment / Plan
Assessment / Plan
68 year old Man
Brother Rogelio point of contact [phone]
ACUTE MANAGING
#Acute Hypoxic Respiratory Failure, secondary to Influenza A
- Was requiring high flow overnight, down to 80% FiO2 this am.
- day 1 of Tamiflu. C/w Tamiflu for 5 day course. Supportive care with IVF, Tylenol for fever.
- Wean O2 per Respiratory
#Sepsis, secondary to Influenza A vs. superimposed bacterial pneumonia
- on admission leukopenic, bandemia, febrile, tachycardic, tachypneic, Flu +, COVID -.
- Blood Cx pending
- s/p 2L of IVF, c/w IVF 100cc/hr
#Probable CAP, secondary to Influenza A.
- Serum procalcitonin elevated, CXR suggestive of possible consolidation in the LLL w/ bronchial breath sounds on exam.
- Ceftriaxone/Doxy x5d course for empiric tx of CAP.
- Sputum cultures pending
#Dysphagia, likely a result of FTD
- evaluated by speech and deemed aspiration risk. Will transition all other meds to IV/Rectal.
- Will keep PO Tamiflu to be given with applesauce owing to essential nature of the medication in reducing mortality/symptom progression in the setting of acute hypoxic respiratory failure secondary to Influenza A, with significant supplemental
oxygen requirement above baseline.
CHRONIC STABLE
#Hypothyroidism - c/w home levothyroxine 75mcg
#Hypercholesterolemia - c/w Lipitor
#Frontotemporal Dementia w/ Parkinson symptoms- c/w carbidopa/levodopa
#Memory Impairment/depression - c/w mertazapine
#BPH
Diet- NPO
DVT PPx - SC Heparin
Code Status - DNR
Anticipated Discharge: > 48 hours
Subjective/Interval History
-
Patient minimally verbal at baseline. Though he does report feeling better with his breathing. He denies fevers or pain anywhere in his body.
Objective Data
-
Labs:
Laboratory Results
03/20/24
05:30
WBC 3.0 L
Hgb 13.9
Hct 41.1
Plt Count 110 L D
Sodium 141
Potassium 4.1
Chloride 103
Carbon Dioxide 29
BUN 25 H
Creatinine 0.8
Glucose 111 H
Calcium 8.4
Total Bilirubin 1.6 H
AST 67 H
ALT 19
Alkaline Phosphatase 77
Vital Signs:
Vital Signs
Temp Pulse Resp BP Pulse Ox
102.2 F H 112 30 146/71 95
03/20/24 07:30 03/20/24 07:30 03/20/24 07:30 03/20/24 07:30 03/20/24 07:58
Review of Systems
-
Unable to obtain full review of systems at this time due to: Dementia
History Source: Patient
Constitutional: Denies Fever
Respiratory: Denies Trouble Breathing
Cardiac: Denies Chest Pain
Abdomen/GI: Denies Abdominal Pain or Nausea
Musculoskeletal: Denies Joint Pain or Muscle Pain
Neuro: Denies Headache
Physical Exam
-
General: Well Developed, Well Nourished, No Apparent Distress, Comfortable and Appears Chronically Ill
HEENT: Normocephalic, Atraumatic, Moist Mucous Membranes, Anicteric, [place] Conjunctivae, PERRLA, Nose Appears Normal, Ears Appear Normal and Oxygen
Respiratory: Other (Bronchial breath sounds in the LLL); Negative Wheezes, Rales or Rhonchi
Cardiac: Regular Rhythm, S1/S2 and Tachycardic; Negative Murmur or Calf Tenderness
GI: Soft, Nontender, Nondistended and Normal Bowel Sounds
Genito-urinary: No Costovertebral Tender
Musculoskeletal: No Clubbing, No Cyanosis and No Edema
Skin: Warm, Dry and IV Access / Catheter Site
Neuro: Awake; Negative Oriented
[2024-03-20] MEDS: NSS 1000 IV ×2 (11:52→22:58)
[2024-03-20 13:40] LABS: Procalcitonin 11.43 ng/ml (0.0-0.25)
--- NOTE | 2024-03-20 13:43 | EDRN ---
Attending notified of procalcitonin via tiger text.
--- NOTE | 2024-03-20 14:08 | W.PN.UPDATE ---
Update Note
Progress Note Update
Seen and examined by me independently in collaboration with the medical insurance biller.
Lab data and imaging data reviewed.
Addendum as below :
Patient with history of dementia. No agitation but confused. Is able to follow commands.
Looks ill. Septic by criteria. Still remains hypoxic requiring high flow oxygen.
Chest x-ray shows left lower lobe opacity but on auscultation is a bronchial breathing raising concern for consolidation. When procalcitonin was checked it was 11+. And empirical antibiotics for community-acquired pneumonia with ceftriaxone and
doxycycline. Check a sputum culture. Blood cultures are pending.
Continue with Tamiflu for influenza A infection.
Discussed with RN.
Total time spent on today's encounter was 52 minutes which included time spent in counseling the patient/family regarding diagnosis and treatment plan as listed above, goals of care, and symptom management. Case was discussed with nursing staff,
specialists, and care coordinators/case management. All labs and imaging personally reviewed by me. Remainder the time spent in detailed review of previous records, lab data, imaging, and other medical provider documentation.
--- NOTE | 2024-03-20 14:35 | EDRN ---
Attempted to call report to ICU, staff reports RN will call back when available.
--- NOTE | 2024-03-20 14:53 | PTOTSP ---
PARTS CONTROL CLERK Note
Dysphagia evaluation held due to inappropriate respiratory status. SpO2 84-89% at rest with RR 30-40+ while on 45 LPM HFNC. Nurse, resident aware.
--- NOTE | 2024-03-20 16:05 | PTCARENOTE ---
DNR listed on transfer sheet- brother francine will provide copyof acutal advance directive tomorrow.
[2024-03-20] MEDS: STERILE WATER FOR INJECTION 10 ML IV (17:09)
[2024-03-20] MEDS: VIBRAMYCIN 260 MG IV (17:09)
[2024-03-20] MEDS: ROCEPHIN 1000 MG IV (17:10)
--- NOTE | 2024-03-20 18:39 | PTCARENOTE ---
Admitted to 3356 IMU monitors placed. Max HF 100% / 50L plus NRB mask 92% sao2. ST on tele 120-130, Temp 103. Incontinent large amt urine on arrival. Tylenol MA administered and #25 condom cath placed. Skin very hot to touch. Ice packs placed
x5 around axilla and groin. Pt pulling off all o2 tubing, drops sao2 into 80s quickly- ordered restraints applied- bilateral mitts and wrists 4 siderails. Pt is AAO self- answers some questions appropriately but has dementia. Brother at bedside
assisted with admission- education provided for restraints. He is POA- numbers in chart.
--- NOTE | 2024-03-20 22:00 | PTCARENOTE ---
Pt resting well overnight. AAOx1. Nods head slightly to answer questions. Mostly nonverbal. Febrile. Tachypneic, tachycardic. Continues on HF 50L/100% w/NRB. Dry workers compensation consultant cough. #25 CC on draining ricardo urine. Able to take Tamiflu without issue. IVF's
infusing as ordered. Restraints on and as documented. Rest of assessment as documented. Maintained on Q2hr turns. Call crawford remains within reach. Will continue to monitor.
[2024-03-21] VITALS (12 sets, daily range): BP systolic 104–144; BP diastolic 67–90
[2024-03-21 03:58] LABS: % Basophils 0.9 % (0-2); % Lymphocytes 7.2 % (20.5-51.1); % Monocytes 2.1 % (1.7-9.3); % Neutrophils 89.8 % (42.2-75.2); Absolute Lymphocytes 0.2 10^3/uL (1.2-3.4); Absolute Monocytes 0.1 10^3/uL (0.1-0.6); Absolute Neutrophils 2.1 10^3/uL (1.4-6.5); Hematocrit 38.9 % (39.0-52.0); Hemoglobin 13.1 g/dL (13.0-18.0); Mean Corp Hgb Conc. 32.9 g/dL (33.0-37.0); Mean Corpuscular Hgb 32.7 pg (27.0-31.0); Mean Corpuscular Volume 99.3 fL (80.0-94.0); Mean Platelet Volume 12.4 fL (7.4-10.4); Nucleated Red Blood Cells % 0 % (-); Platelet Count 110 10^3/uL (130-400); Red Blood Cell Count 4.04 10^6/uL (4.70-6.10); Red Cell Dist. Width 14.6 % (11.5-14.5); White Blood Cell Count 2.4 10^3/uL (4.8-10.8)
[2024-03-21 04:11] LABS: ALT (SGPT) 15 U/L (0-50); AST (SGOT) 58 U/L (17-59); Albumin 2.1 g/dl (3.5-5.0); Alkaline Phosphatase 69 U/L (38-126); Blood Urea Nitrogen 21 mg/dl (9-20); Calcium 8.3 mg/dl (8.4-10.2); Carbon Dioxide 23 mmol/L (22-30); Chloride 113 mmol/L (98-107); Estimated Creatinine Clearance 91 ml/min; Glucose 80 mg/dl (70-99); Potassium 3.7 mmol/L (3.5-5.1); Sodium 145 mmol/L (135-145); Total Bilirubin 1.5 mg/dl (0.2-1.3); Total Protein 4.5 g/dl (6.3-8.2); eGFR > 60.00
[2024-03-21] MEDS: VIBRAMYCIN 260 MG IV ×2 (05:32→18:27)
[2024-03-21] MEDS: NSS 1000 IV ×2 (05:33→16:34)
[2024-03-21] MEDS: TAMIFLU 75 MG PO ×2 (08:16→20:11)
[2024-03-21] MEDS: HEPARIN 5000 UNITS SC ×3 (08:16→23:47)
--- NOTE | 2024-03-21 08:25 | PHA.VAN.IN ---
Assessment
- Assessment
Renal Function: Appears similar to baseline
Maximum Temperature: 105.5 - on 03/19/24 18:57
Concomitant Antimicrobials: ceftriaxone, doxycyline, tamiflu
AUC Dosing Plan
- Dosing Variables
Dosing Weight (kg): 55
Dosing CrCl (ml/min): 91
Vd coefficient (L/kg): 0.7
- Empiric Dosing
Initial / Loading Dose: 1250 mg (~23mg/kg LD_ - administration pending
Maintenance Regimen: 750 mg q12h - to begin tonight
Estimated AUC (mcg*h/mL): 507
Estimated Peak (mcg*h/mL): 31.6
Estimated Trough (mcg/ml): 13.1
Estimated Half Life (H): 8.7
- Monitoring
No levels ordered at this time: consider levels as pt nears steady state
Pharmacokinetics Vancomycin I
- -
Patient Age: 68
Patient Sex: Male
Vancomycin Day #: 1
Indication: Bacteremia
Requesting Provider: Kvng
Height / Weight:
Height 5 ft 4 in
Actual Weight 54.8 kg
Pertinent Past Medical History: influenza A
- Vital Signs / Lab Results
Temp Pulse Resp BP Pulse Ox
99.0 F 105 28 121/80 93
03/21/24 07:45 03/21/24 05:00 03/21/24 05:00 03/21/24 04:00 03/21/24 05:00
Lab Results - Hematology
03/19/24 03/20/24 03/21/24
18:58 05:30 03:15
WBC 3.6 L 3.0 L 2.4 L*
Band Neutrophils 10 H 12 H
Lab Results - Chemistry
03/19/24 03/20/24 03/21/24
18:58 05:30 03:15
BUN 27 H 25 H 21 H
Creatinine 0.8 0.8 0.6 L
Estimated Creat Clear 75 75 91
Albumin 4.4 2.9 L D 2.1 L
03/19/24 03/20/24
19:05 02:42
Lactic Acid 3.4 H 1.2
Lab Results - Urine
03/19/24
18:58
Urine Nitrite (Reflex) Cancelled
Leukocyte Esterase Rfl Cancelled
Microbiology Results
03/19/24 21:19 Blood Culture - Preliminary
Blood/Venous No Growth in 24 hours- Final report to follow
03/19/24 21:19 Blood Culture - Preliminary
Blood/Venous Positive culture in progress
Gram Stain - Preliminary
03/19/24 18:58 Influenza Types A & B (DAYDAY) - Final
Nasal Swab Influenza A Positive, NAAT
--- NOTE | 2024-03-21 08:42 | W.PN.HOSP.TC ---
Today's Communication/Plan
-
Continue with high flow nonrebreather and wean oxygen as able.
Continue Tamiflu.
Continue with antibiotics. Add vancomycin for bacteremia.
Continue with IV fluids and keep n.p.o. till cleared by speech.
Assessment / Plan
Assessment / Plan
68 year old Man
Brother Rogelio point of contact [phone]
ACUTE MANAGING
#Acute Hypoxic Respiratory Failure, secondary to Influenza A and pneumonia
- requiring high flow overnight and as well nonrebreather
-No known prior history of lung disease. I suspect still pneumonia causing hypoxia. Clinically without lower extremity edema or JVD. Not known to have cardiac disease either. Doubt heart failure. If remains hypoxic check a chest x-ray and a
BNP.
-There is suspicion of superimposed bacterial pneumonia in the left lower zone-patient has bronchial breathing in this area, there is opacity and procalcitonin significantly elevated. He is also bacteremic and 1 out of 2 bottles with gram-positive
bacteremia in clusters. Continue ceftriaxone, doxycycline and add vancomycin. Follow identification of the cultures.
- day 2 of Tamiflu. Supportive care with IVF, Tylenol for fever.
- Wean O2 as able
#Sepsis, secondary to Influenza A vs. superimposed bacterial pneumonia
- on admission leukopenic, bandemia, febrile, tachycardic, tachypneic, Flu +, COVID -.
- Blood Cx positive
- s/p 2L of IVF, c/w IVF 100cc/hr
#Probable CAP, secondary to Influenza A.
- Serum procalcitonin elevated, CXR suggestive of possible consolidation in the LLL w/ bronchial breath sounds on exam.
- Ceftriaxone/Doxy x5d course for empiric tx of CAP.
- Sputum cultures pending
#Dysphagia, likely secondary to weakness from pneumonia and sepsis ; patient with history of FTD
- evaluated by speech and deemed aspiration risk. Will transition all other meds to IV/Rectal.
- Will keep PO Tamiflu to be given with applesauce owing to essential nature of the medication-according to nurse tolerating it okay.
CHRONIC STABLE
#Hypothyroidism - c/w home levothyroxine 75mcg
#Hypercholesterolemia - c/w Lipitor
#Frontotemporal Dementia w/ Parkinson symptoms- c/w carbidopa/levodopa
#Memory Impairment/depression - c/w mertazapine
#BPH
Diet- NPO
DVT PPx - SC Heparin
Code Status - DNR
Discussed with RN
Discussed with respiratory therapist
Discussed with brother and updated the severe nature of his infection, sepsis and severe hypoxia.
Total time spent on today's encounter was 52 minutes which included time spent in counseling the patient/family regarding diagnosis and treatment plan as listed above, goals of care, and symptom management. Case was discussed with nursing staff,
specialists, and care coordinators/case management. All labs and imaging personally reviewed by me. Remainder the time spent in detailed review of previous records, lab data, imaging, and other medical provider documentation.
Anticipated Discharge: > 48 hours
Subjective/Interval History
-
Date of Service: March 21, 2024
Patient is alert. Not much conversive. Follows commands. Does not say much.
Patient requiring high flow but also nonrebreather this morning but no distress noted.
Objective Data
-
Labs:
Laboratory Results
03/21/24
03:15
WBC 2.4 L*
Hgb 13.1
Hct 38.9 L
Plt Count 110 L
Sodium 145
Potassium 3.7
Chloride 113 H
Carbon Dioxide 23
BUN 21 H
Creatinine 0.6 L
Glucose 80
Calcium 8.3 L
Total Bilirubin 1.5 H
AST 58
ALT 15
Alkaline Phosphatase 69
Vital Signs:
Vital Signs
Temp Pulse Resp BP Pulse Ox
99.0 F 105 28 121/80 94
03/21/24 07:45 03/21/24 05:00 03/21/24 05:00 03/21/24 04:00 03/21/24 08:28
I&O
03/20/24 03/21/24 03/22/24
06:59 06:59 06:59
Intake Total 1200 / 1200
Output Total 300 / 300
Balance 900 / 900
Review of Systems
-
Unable to obtain full review of systems at this time due to: Dementia
Physical Exam
-
General: No Apparent Distress
Respiratory: Non Labored Respirations and Other (Bronchial breathing in the left lower zone); Negative Wheezes or Accessory Resp Muscle Use
Cardiac: Regular Rhythm, S1/S2 and Tachycardic
GI: Soft and Nontender
Musculoskeletal: No Edema
Neuro: Awake and Alert
Psych: Calm; Negative Agitated
Data Reviewed
-
Labs: Labs Reviewed by me
[2024-03-21] MEDS: VANCOCIN 275 MG IV (09:54)
[2024-03-21] MEDS: LEVOTHROID 60 MCG IV (16:39)
[2024-03-21] MEDS: ROCEPHIN 1000 MG IV (16:41)
[2024-03-21] MEDS: STERILE WATER FOR INJECTION 10 ML IV (16:41)
[2024-03-21] MEDS: VANCOCIN 150 IV (16:45)
--- NOTE | 2024-03-21 22:00 | PTCARENOTE ---
Pt resting well overnight. AAOx1. Nods head slightly to answer questions. Mostly nonverbal. Febrile. Tachypneic, tachycardic. Continues on HF 50L/100% w/NRB. Dry management liaison cough. #25 CC on draining ricardo urine. Able to take Tamiflu without issue. IVF's
infusing as ordered. Restraints on and as documented. Rest of assessment as documented. Maintained on Q2hr turns. Call crawford remains within reach. Will continue to monitor.
[2024-03-22] VITALS (70 sets, daily range): BP systolic 69–137; BP diastolic 55–92
[2024-03-22] MEDS: NSS 1000 IV ×3 (02:02→20:13)
[2024-03-22] MEDS: CARDIZEM 125 IV (03:30)
--- NOTE | 2024-03-22 03:58 | W.PN.UPDATE ---
Addendum entered and electronically signed by LAVONNE Stark 03/22/24 06:32:
Levophed started sbp 87/71 HR 130s afib.
Addendum entered and electronically signed by LAVONNE Stark 03/22/24 05:00:
BP maintaining in 90s systolic with MAP in 60s so will hold of on Levophed.
Original Note:
Update Note
Progress Note Update
Patient noted in uncontrolled afib with rates upwards of 180. Cardizem infusion added with no effect and with bp also going from 110s systolic to 80s systolic. iVF increased to 200 ml/hr. Changed cardizem to amiodorone infusion and added Levophed
for bp support. No known history of PAF.
[2024-03-22] MEDS: OFIRMEV 100 IV (04:05)
[2024-03-22 04:06] LABS: Glucose - Point of Care 78 mg/dl (70-99)
[2024-03-22] MEDS: CORDARONE 518 MG IV (04:07)
[2024-03-22] MEDS: VANCOCIN 150 IV (04:30)
[2024-03-22] MEDS: VIBRAMYCIN 260 MG IV ×2 (04:34→16:59)
--- NOTE | 2024-03-22 04:42 | PTCARENOTE ---
At approx 0300 pt's CM alarming HR 170's. Pt appears comfortable on assessment. Shock head no when asked if he was having any CP/palpitations. BP 90's/60's. RR 40's. POX 86% on HF 50L/100% w/NRB. AFebrile. [place] BANERJEE TT'd and updated on pts
status. EKG obtained showing Afib w/RVR. AM labs obtained. Second IV site obtained. IVF's increaed to 200ml/hr per order. Cardizem gtt initiated at 5ml/hr. [place] BANERJEE o n floor to assess pt and Cardizem gtt d/c'd and changed to Amiodarone gtt.
Amiodarone currently infusing at 33.3ml/hr. Ofirmev ordered and infused. AM antibiotics infusing as ordered. HR currently 166 Afib. This am pt with weak moist quality project manager cough. [place] BANERJEE made aware. Skin slightly diaphoretic. BS 78. Pt currently resting
comfortably. Will continue to monitor.
[2024-03-22 05:10] LABS: Blood Urea Nitrogen 26 mg/dl (9-20); Estimated Creatinine Clearance 91 ml/min; Glucose 86 mg/dl (70-99); Hematocrit 42.8 % (39.0-52.0); Mean Corp Hgb Conc. 32.7 g/dL (33.0-37.0); Mean Corpuscular Hgb 32.5 pg (27.0-31.0); Mean Corpuscular Volume 99.3 fL (80.0-94.0); Mean Platelet Volume 12.5 fL (7.4-10.4); Platelet Count 141 10^3/uL (130-400); Red Blood Cell Count 4.31 10^6/uL (4.70-6.10); Red Cell Dist. Width 14.6 % (11.5-14.5); White Blood Cell Count 4.9 10^3/uL (4.8-10.8)
[2024-03-22 05:11] LABS: ALT (SGPT) 15 U/L (0-50); AST (SGOT) 48 U/L (17-59); Albumin 2.2 g/dl (3.5-5.0); Alkaline Phosphatase 71 U/L (38-126); Calcium 8.9 mg/dl (8.4-10.2); Carbon Dioxide 23 mmol/L (22-30); Chloride 117 mmol/L (98-107); Potassium 3.8 mmol/L (3.5-5.1); Sodium 147 mmol/L (135-145); Total Bilirubin 1.2 mg/dl (0.2-1.3); Total Protein 4.8 g/dl (6.3-8.2); eGFR > 60.00
[2024-03-22] MEDS: LOPRESSOR 5 MG IV (05:28)
[2024-03-22 05:44] LABS: Magnesium 2.3 mg/dl (1.6-2.3)
[2024-03-22 06:02] LABS: % Basophils 1.4 % (0-2); % Immature Granulocytes 0.2 % (0-0.5); % Monocytes 3.1 % (1.7-9.3); % Neutrophils 89.3 % (42.2-75.2); Absolute Basophils 0.1 10^3/uL (0-0.2); Absolute Lymphocytes 0.3 10^3/uL (1.2-3.4); Absolute Monocytes 0.2 10^3/uL (0.1-0.6); Absolute Neutrophils 4.3 10^3/uL (1.4-6.5)
[2024-03-22 06:03] LABS: Nucleated Red Blood Cells % 0 % (-)
[2024-03-22] MEDS: LEVOPHED 250 IV (06:32)
--- NOTE | 2024-03-22 06:40 | PTCARENOTE ---
BP 69/55 repeat BP 81/56 MAP 65. [place] BANERJEE TT'd and updated. Order entered for Levophed gtt. Levophed gtt infusing at 2mcq/min. Will report off to day shift RN.
[2024-03-22] MEDS: TAMIFLU 75 MG PO ×2 (07:51→20:15)
[2024-03-22] MEDS: HEPARIN 5000 UNITS SC ×3 (07:51→23:32)
[2024-03-22 08:51] LABS: Total Thyroxine 5.61 ug/dl (5.5-11.0)
--- NOTE | 2024-03-22 09:37 | W.PN.HOSP.TC ---
Today's Communication/Plan
-
Continue with antibiotics. DC vancomycin
IV fluid bolus. Check lactic acid and echocardiogram.
Consult cardiology
Wean vasopressors as able.
Continue with amnio till seen by cardiology.
Assessment / Plan
Assessment / Plan
68 year old Man
Brother Rogelio point of contact [phone]
ACUTE MANAGING
#Acute Hypoxic Respiratory Failure, secondary to Influenza A and pneumonia
-Currently requiring only high flow. Off of nonrebreather.
-No known prior history of lung disease. I suspect still pneumonia causing hypoxia. Clinically without lower extremity edema or JVD. Not known to have cardiac disease either. Doubt heart failure. If remains hypoxic check a chest x-ray and a
BNP.
-There is suspicion of superimposed bacterial pneumonia in the left lower zone-patient has bronchial breathing in this area, there is opacity and procalcitonin significantly elevated. He is also bacteremic and 1 out of 2 bottles with gram-positive
bacteremia in clusters -culture comes back as coagulase-negative staph suspect contaminant. Stop vancomycin.. Continue ceftriaxone, doxycycline .
- day 3 of Tamiflu. Supportive care with IVF, Tylenol for fever.
- Wean O2 as able
#Sepsis, secondary to Influenza A vs. superimposed bacterial pneumonia
- on admission leukopenic, bandemia, febrile, tachycardic, tachypneic, Flu +, COVID -.
- s/p 2L of IVF, c/w IVF 100cc/hr
- Will give a bolus today
#Probable CAP, secondary to Influenza A.
- Serum procalcitonin elevated, CXR suggestive of possible consolidation in the LLL w/ bronchial breath sounds on exam.
- Ceftriaxone/Doxy x5d course for empiric tx of CAP.
- Sputum cultures pending
# New onset of A-fib-rate controlled. Was initiated on amiodarone last night. Consult cardiology. Obtain echocardiogram
#Hypotension-suspect multifactorial including sepsis and new onset of atrial fibrillation. Check lactic acid and echocardiogram. Wean vasopressors as able. Will give a bolus of fluid and see the response.
#Dysphagia, likely secondary to weakness from pneumonia and sepsis ; patient with history of FTD
- evaluated by speech and deemed aspiration risk. Will transition all other meds to IV/Rectal.
- Will keep PO Tamiflu to be given with applesauce owing to essential nature of the medication-according to nurse tolerating it okay.
CHRONIC STABLE
#Hypothyroidism - c/w home levothyroxine 75mcg
#Hypercholesterolemia - c/w Lipitor
#Frontotemporal Dementia w/ Parkinson symptoms- c/w carbidopa/levodopa
#Memory Impairment/depression - c/w mertazapine
#BPH
Diet- NPO
DVT PPx - SC Heparin
Code Status - DNR
Discussed with RN
Discussed with brother at bedside and updated the new clinical issues and treatments..
Total time spent on today's encounter was 52 minutes which included time spent in counseling the patient/family regarding diagnosis and treatment plan as listed above, goals of care, and symptom management. Case was discussed with nursing staff,
specialists, and care coordinators/case management. All labs and imaging personally reviewed by me. Remainder the time spent in detailed review of previous records, lab data, imaging, and other medical provider documentation.
Anticipated Discharge: > 48 hours
Subjective/Interval History
-
Date of Service: March 22, 2024
Last night events noted-patient went into A-fib and was hypotensive
Patient is alert but noncommunicative. Patient normally not much conversive at baseline according to the brother who is at bedside this morning.
Currently on high flow but has come off the nonrebreather mask.
No agitation noted.
Objective Data
-
Labs:
Laboratory Results
03/22/24
03:49
WBC 4.9
Hgb 14.0
Hct 42.8
Plt Count 141 D
Sodium 147 H
Potassium 3.8
Chloride 117 H
Carbon Dioxide 23
BUN 26 H
Creatinine 0.6 L
Glucose 86
Calcium 8.9
Total Bilirubin 1.2
AST 48
ALT 15
Alkaline Phosphatase 71
Vital Signs:
Vital Signs
Temp Pulse Resp BP Pulse Ox
97.3 F 115 26 81/56 99
03/22/24 08:05 03/22/24 06:30 03/22/24 06:30 03/22/24 06:30 03/22/24 06:30
I&O
03/21/24 03/22/24 03/23/24
06:59 06:59 06:59
Intake Total 1200 / 1200 1610 / 1610
Output Total 300 / 300 850 / 850
Balance 900 / 900 760 / 760
Review of Systems
-
Unable to obtain full review of systems at this time due to: Dementia
Physical Exam
-
General: No Apparent Distress
Respiratory: Clear to Auscultation (anteriorly) and Non Labored Respirations; Negative Accessory Resp Muscle Use
Cardiac: S1/S2, Irregular Rhythm and Tachycardic
GI: Soft
Neuro: Awake and Alert
Psych: Calm; Negative Agitated
Data Reviewed
-
Labs: Labs Reviewed by me
--- NOTE | 2024-03-22 09:40 | CM ---
Patient from [facility] with Hx Parkinsons Disease Dx Acute Hypoxic Respiratory Failure, Influenza A, pneumonia, sepsis, dysphagia. High flow O2. Droplet precautions. NPO. Receiving Levophed gtt, IV Amiodarone, IV
Abx. Per nurse; confused.
Spoke with NAHUM Gutierrez, [facility] (cell [phone]);
the patient resides at [facility].
He is confused at baseline, assisted with ADLs.
The patient has bilateral foot drop and an unsteady gait.
He is ambulatory and also uses a w/c.
The patient was not on O2
DME - SPC, transport chair
VN - was not receiving PT/OT currently
Pharmacy - [facility]
His brother Rogelio has contact with the patient.
The ph for report [phone], fax [phone].
Plan follow patient's O2 needs and mobility needs.
Plan possible return to [facility].
--- NOTE | 2024-03-22 10:08 | CON.CAR ---
Consultation
Consultation Request
Date/Time Consultation Requested: 03/22/2024
Date/Time Consultation Performed: 03/22/2024
Reason for Consultation: New onset atrial fibrillation
Medical History
-
Chief Complaint: Fever
History of Present Illness:
68-year-old male past medical history of memory impairment, Parkinson's disease, hypothyroidism, BPH, hypercholesteremia presenting from [facility] [place] with with fever, nausea and vomiting and rigors and hypoxemia to 80% on room air. He
denies any diarrhea or abdominal pain. He denies chest pain.
Denies smoking or alcohol use.
Patient's brother is at the bedside and case was discussed in detail. Patient has never been diagnosed with atrial fibrillation until now. He is now admitted with sepsis and was noted to have an atrial fibrillation. At the time of arrival,
patient was in A-fib with RVR. With hypotension, patient was started on Levophed and amiodarone drip was started. For his pneumonia, he has been treated with ceftriaxone, doxycycline and Tamiflu.
Cardiology is consulted for atrial fibrillation.
Patient is alert and awake and is able to answer questions. He is in soft mitts for restains at baseline due to his baseline dementia and Parkinson's disease.
Past Medical History
Past Medical History: HTN, Hypercholesterolemia, Hypothyroidism and Other (memory impairment, Parkinson's disease, hypothyroidism, BPH, hypercholesteremia)
Social History
Tobacco: Non-Smoker
Family History
Family History: Reviewed & Not Pertinent
Allergies / Home Medications
Allergy/AdvReac Type Severity Reaction Status Date / Time
No Known Allergies Allergy Verified 03/20/24 10:56
�Medication �Instructions �Recorded �Confirmed �Type
carbidopa 25 mg-levodopa 100 mg 1 tab PO TID Neurological Condition 03/19/24 03/20/24 History
tablet
levothyroxine 75 mcg tablet 75 mcg PO DAILY Thyroid 03/19/24 03/20/24 History
mirtazapine 15 mg tablet 15 mg PO HS Mental Health/Anxiety 03/19/24 03/20/24 History
acetaminophen 500 mg tablet 1,000 mg PO Q8HPRN PRN mild pain 03/20/24 03/20/24 History
(Tylenol Extra Strength)
atorvastatin 10 mg tablet (Lipitor) 10 mg PO HS High Cholesterol 03/20/24 03/20/24 History
carboxymethylcellulose 0.5 1 drp BOTH EYES HS Eye Condition 03/20/24 03/20/24 History
%-glycerin 0.9 % eye drops
(Refresh Optive)
cyanocobalamin (vitamin B-12) 5,000 mcg sublingual DAILY 03/20/24 03/20/24 History
5,000 mcg sublingual tablet Supplement
ondansetron HCl 4 mg tablet 4 mg PO Q6HPRN PRN nausea 03/20/24 03/20/24 History
Review of Systems
-
History Source: Family
All other systems: Negative unless noted
Physical Exam
Vital Signs
Temp Pulse Resp BP Pulse Ox
97.3 F 115 26 81/56 98
03/22/24 08:05 03/22/24 06:30 03/22/24 06:30 03/22/24 06:30 03/22/24 09:45
Lab Results
03/22/24 03:49
03/22/24 03:49
Physical Exam
General: No Apparent Distress and Comfortable
HEENT: Normocephalic and Anicteric
Respiratory: Rhonchi and Non Labored Respirations
Cardiac: S1/S2, Irregular Rhythm and Murmur
GI: Soft, Non Tender and Non Distended
Musculoskeletal: No Clubbing, No Cyanosis and No Edema
Skin: Warm and Dry
Neuro: Awake
Psych: Calm and Confused
Impression / Plan
-
68-year-old gentleman with Parkinson's disease and dementia, hypothyroidism presented with pneumonia and sepsis and noted to have atrial fibrillation with rapid ventricular response.
Atrial fibrillation
-Rates are improved on amiodarone drip.
-Telemetry shows still in A-fib with better rates.
-Continue amiodarone drip
-High [id number] score but clinically unstable�will continue DVT prophylaxis with 5000 units every 8 hour.
-Due to sepsis and hypotension, hold diltiazem and metoprolol.
-IV fluids for hypotension and sepsis.
-Echo in a.m.
Sepsis
-On Levophed, IV fluids, antibiotics, and ICU close monitoring
-Management as per primary team.
Parkinson's/dementia
-Continue Sinemet
Hyperlipidemia
-Continue Lipitor
[facility] for the prior management.
Data Reviewed
-
EKG: Tracing Personally Visualized and interpreted and Report Reviewed by me
Radiology: Report Reviewed by me
Labs: Labs Reviewed by me, Discussed with Physician, Discussed with Patient and Discussed with Family
Old Records: Reviewed
[2024-03-22] MEDS: NSS 500 IV (10:12)
[2024-03-22 15:50] LABS: Lactic Acid 1.2 mmol/L (0.7-2.0)
[2024-03-22] MEDS: STERILE WATER FOR INJECTION 10 ML IV (16:26)
[2024-03-22] MEDS: ROCEPHIN 1000 MG IV (16:26)
[2024-03-22] MEDS: LEVOTHROID 60 MCG IV (16:58)
[2024-03-23] VITALS (26 sets, daily range): BP systolic 112–150; BP diastolic 70–89
--- NOTE | 2024-03-23 01:46 | PTCARENOTE ---
Pt continues on max Highflow/NRB, spo2 97-99%. Weaning attempted with NRB at 13L, Pt spo2 dropping to 89-90%. Pt remains on Amio gtt 24hr bairon at 0400, new IV placed to continue Amio gtt until dayshift for central line or PO attempted. restraints
remain in place, Pt grabbing at high flow when he can. Assessment care and vitals as charted.
[2024-03-23] MEDS: CORDARONE 518 MG IV (03:11)
[2024-03-23] MEDS: MORPHINE SULFATE 1 MG IV ×3 (03:58→19:36)
--- NOTE | 2024-03-23 04:02 | PTCARENOTE ---
Pt becoming more labored in breathing. RR going from 20's-30's to high 40's and maintaining. Spo2 in 80's to 90's. RT to bed side to check equipment. Night IMPREGNATOR OPERATOR made aware morphine for sob ordered.
[2024-03-23 04:28] LABS: % Basophils 0.4 % (0-2); % Immature Granulocytes 0.4 % (0-0.5); % Lymphocytes 4.4 % (20.5-51.1); % Monocytes 3.3 % (1.7-9.3); % Neutrophils 91.5 % (42.2-75.2); Absolute Lymphocytes 0.3 10^3/uL (1.2-3.4); Absolute Monocytes 0.2 10^3/uL (0.1-0.6); Absolute Neutrophils 5.2 10^3/uL (1.4-6.5); Hematocrit 36.9 % (39.0-52.0); Hemoglobin 12.5 g/dL (13.0-18.0); Mean Corp Hgb Conc. 33.9 g/dL (33.0-37.0); Mean Corpuscular Hgb 32.9 pg (27.0-31.0); Mean Corpuscular Volume 97.1 fL (80.0-94.0); Mean Platelet Volume 12.1 fL (7.4-10.4); Nucleated Red Blood Cells % 0 % (-); Platelet Count 155 10^3/uL (130-400); Red Cell Dist. Width 14.5 % (11.5-14.5); White Blood Cell Count 5.7 10^3/uL (4.8-10.8)
[2024-03-23 04:48] LABS: ALT (SGPT) 13 U/L (0-50); AST (SGOT) 42 U/L (17-59); Albumin 1.8 g/dl (3.5-5.0); Alkaline Phosphatase 78 U/L (38-126); Blood Urea Nitrogen 25 mg/dl (9-20); Calcium 8.1 mg/dl (8.4-10.2); Carbon Dioxide 24 mmol/L (22-30); Chloride 119 mmol/L (98-107); Estimated Creatinine Clearance 91 ml/min; Glucose 90 mg/dl (70-99); Potassium 3.3 mmol/L (3.5-5.1); Sodium 149 mmol/L (135-145); Total Bilirubin 1.2 mg/dl (0.2-1.3); Total Protein 4.3 g/dl (6.3-8.2); eGFR > 60.00
--- NOTE | 2024-03-23 06:02 | PTCARENOTE ---
Morning labs reported to SUGAR [employer]E PL[employer]TER. IVF changed (see MAR).
[2024-03-23] MEDS: VIBRAMYCIN 260 MG IV ×2 (06:22→17:23)
[2024-03-23] MEDS: NSS IV (06:23)
[2024-03-23] MEDS: KCL 1020 MEQ IV ×2 (06:27→17:25)
[2024-03-23] MEDS: TAMIFLU PO ×2 (08:04→20:50)
--- NOTE | 2024-03-23 09:19 | W.PN.HOSP.TC ---
Addendum entered and electronically signed by Natalia Grey MD 03/23/24 20:55:
I saw and evaluated the patient independently. I reviewed the resident�s note and agree with findings and plan as documented by Dr. King.
GENERAL: chronically ill appearing male in resp distress breathing 45/min
HEENT: NC/AT--HI DEBORAH + NRB mask
HEART: regular rate and rhythm, +S1, +S2, tachycardia
LUNGS : coarse BS bilaterally
ABDOM: soft, nontender, nondistended, + bowel sounds
EXT: no cyanosis, clubbing, or edema
NEUROLOGIC: apparent dementia and features c/w Parkinson's
Acute Hypoxic Respiratory Failure, secondary to Influenza A and presumed pneumonia (CXR on admission without definitive findings)--NOW on 100% HI DEBORAH with 50L and NRB mask--repeat CXR with significnat worsening either progressive PNA or pulm
edema--procalcitonin on admission was elevated--ECHo with preserved EF--STAT pro BNP still pending--Continue ceftriaxone, doxycycline--consideration for diuresis or broadening ABX--apprec pulm--cont tamiflu
Sepsis, secondary to Influenza A vs. superimposed bacterial pneumonia--on admission leukopenic, bandemia, febrile, tachycardic, tachypneic, Flu +, COVID -S/p 2L of IVF, c/w IVF 100cc/hr--stop IV fluid--Sputum cultures resulted showing many squamous
epithelial cells, few white blood cells, and many mixed bacterial morphotypes.
Paroxysmal atrial fibrillation--off amio--apprec cards--holding on AC--Echocardiogram obtained on 03/23/2024 showed a normal left ventricular size, wall thickness and systolic function left ventricular ejection fraction was 55 to 60% by visual
assessment. Trace tricuspid regurgitation no aortic regurgitation. No mitral regurgitation.
Dysphagia--Likely secondary to weakness from pneumonia and sepsis and Parkinson's with frontotemporal dementia--apprec speech--Will keep PO Tamiflu to be given with applesauce owing to essential nature of the medication-according to nurse tolerating
it okay.
Hypothyroidism--synthroid
Hypercholesterolemia--Continue Lipitor
Frontotemporal Dementia w/ Parkinson symptoms--Continue carbidopa/levodopa --mirtazepine
BPH
DVT Proph - SC Heparin
Code Status - DNR
updated brother at bedside--explained concerning O2 requirements and next step would be intubation--he confirms pt is DNR/DNI
Original Note:
Today's Communication/Plan
-
Plan to have family meeting to discuss likely course and prognosis of patient. Patient advanced directive is on the chart per patient brother. income tax manager is reaching out to [facility] to confirm ability to accept patient.
Assessment / Plan
Assessment / Plan
HPI: Patient is a 68-year-old male who was sent to the emergency department from [facility] with a fever of 100.2, vomiting, weakness, rigors. He had 4 episodes of vomiting on the Saturday prior to his presentation. Patient has a history of
hypothyroidism, BPH, mild neurocognitive disorder, and Parkinson's. The patient was able to nod his head yet was unable to give a history in the emergency department. The patient was not ambulatory.
Assessment/Plan:
-Acute Hypoxic Respiratory Failure, secondary to Influenza A and pneumonia
Currently requiring high flow oxygen at 50 L at 100% with nonrebreather mask
Most recent chest x-ray conducted on 03/23/2024 showed new marked bilateral widespread pulmonary alveolar opacification in comparison to recent prior study. Possible acute pulmonary edema but pneumonia cannot be excluded. Continue ceftriaxone,
doxycycline .
Day 4 of Tamiflu. Supportive care with IVF, Tylenol for fever.
-Sepsis, secondary to Influenza A vs. superimposed bacterial pneumonia
on admission leukopenic, bandemia, febrile, tachycardic, tachypneic, Flu +, COVID -.
S/p 2L of IVF, c/w IVF 100cc/hr
Continuing IV fluid support
Goal MAP above 65
-Probable CAP, secondary to Influenza A.
Serum procalcitonin elevated, CXR suggestive of possible consolidation in the LLL w/ bronchial breath sounds on exam. Follow-up chest x-ray conducted on 03/23/2024 showed new marked bilateral widespread pulmonary alveolar opacification in
comparison to that prior recent study. While the most likely differential diagnostic possibility would be acute pulmonary edema, pneumonia cannot be excluded
Ceftriaxone/Doxy x5d course for empiric tx of CAP.
Sputum cultures resulted showing many squamous epithelial cells, few white blood cells, and many mixed bacterial morphotypes.
-Paroxysmal atrial fibrillation
Now in sinus rhythm
[id number] score is at least 1
Amiodarone discontinued
Appreciate cardiology. They recommended watching the patient on telemetry, and they are debating whether to add chronic treatment for atrial fibrillation.
Echocardiogram obtained on 03/23/2024 showed a normal left ventricular size, wall thickness and systolic function left ventricular ejection fraction was 55 to 60% by visual assessment. Trace tricuspid regurgitation no aortic regurgitation. No
mitral regurgitation.
-Dysphagia
Likely secondary to weakness from pneumonia and sepsis
Evaluated by speech and deemed aspiration risk. Will try to alter medications to avoid aspiration risk.
Will keep PO Tamiflu to be given with applesauce owing to essential nature of the medication-according to nurse tolerating it okay.
-Hypothyroidism
home levothyroxine 75mcg
-Hypercholesterolemia
Continue Lipitor
-Frontotemporal Dementia w/ Parkinson symptoms:
Continue carbidopa/levodopa
-Memory Impairment/depression
continue mertazapine
-BPH:
Monitoring
Diet- NPO
DVT PPx - SC Heparin
Code Status - DNR
Anticipated Discharge: 24 - 48 hours
Subjective/Interval History
-
Met with patient at the bedside. Overall, he offers no complaints but does not speak when asked questions. He appears to comprehend and understand when he is being talked to and can nod and confirm his thoughts and answers. Seen watching
television with his nasal cannula and nonrebreather mask on.
Objective Data
-
Labs:
Laboratory Results
02/10/25
03:58
WBC 5.7
Hgb 12.5 L
Hct 36.9 L
Plt Count 155
Sodium 149 H
Potassium 3.3 L
Chloride 119 H
Carbon Dioxide 24
BUN 25 H
Creatinine 0.5 L
Glucose 90
Calcium 8.1 L
Total Bilirubin 1.2
AST 42
ALT 13
Alkaline Phosphatase 78
Vital Signs:
Vital Signs
Temp Pulse Resp BP Pulse Ox
98.9 F 80 33 139/75 95
03/23/24 08:37 03/23/24 06:00 03/23/24 06:00 03/23/24 06:00 03/23/24 07:25
I&O
03/22/24 03/23/24 03/24/24
06:59 06:59 06:59
Intake Total 1610 / 1610 1460 / 1460
Output Total 850 / 850 650 / 650
Balance 760 / 760 810 / 810
Review of Systems
-
History Source: Patient
Constitutional: Reports Fatigue
EENT: Reports No Symptoms Reported
Respiratory: Reports Trouble Breathing
Cardiac: Reports No Symptoms
Abdomen/GI: Reports No Symptoms
Breast: Reports No Symptoms
Genitourinary: Reports No Symptoms
Musculoskeletal: Reports No Symptoms
Skin: Reports No Symptoms
Neuro: Reports No Symptoms
Physical Exam
-
General: No Apparent Distress
HEENT: Normocephalic and Atraumatic
Respiratory: Clear to Auscultation
Cardiac: Regular Rhythm and S1/S2
Breast: Deferred by me
GI: Soft, Nontender, Nondistended and Normal Bowel Sounds
Rectal: Deferred by Provider
Genito-urinary: Deferred by me
Musculoskeletal: No Clubbing, No Cyanosis and No Edema
Skin: Warm and Dry
Neuro: Awake, Alert and Oriented
[2024-03-23] MEDS: HEPARIN 5000 UNITS SC ×3 (10:10→23:39)
--- NOTE | 2024-03-23 11:53 | PTOTSP ---
Dysphagia Evaluation
High aspiration risk given patient is on maximum level of respiratory support (HFNC, 100% FiO2 and non-rebreather and tachypneic with RR 30-40) while admitted with influenza A and concern for bacteria PNA and with baseline FTD and Parkinson's
disease. Increase in respiratory rate to 50's observed with sparing bite of puree.
Plan of care:
1. Continue NPO
2. Medications: non-oral if able given elevated aspiration risk
3. Oral care 3-5x daily
4. Aspiration risk hydration protocol is not appropriate due to respiratory status.
5. Dysphagia tx at the acute care level to determine if/when patient appropriate for oral medications, PO diet, and if instrumental testing appropriate.
--- NOTE | 2024-03-23 12:02 | CON.PUL ---
Consultation
Consultation Request
Date/Time Consultation Requested: 03/23/24
Date/Time Consultation Performed: 03/23/24
Performing Provider: An
Reason for Consultation: Hypoxemia
Medical History
-
History of Present Illness:
Patient is a 68-year-old male with history of Parkinson's disease, dementia, presenting from the [place] [facility] for fevers and vomiting which started Saturday. In ER, patient had fever of 105.5F rectally, w/ audible cough, HR 140s, with sat 79% on RA.
Patient was found to be influenza positive, lactate 3.4. IVFs were ordered, patient placed on HFNC and admitted to IMU. CXR relatively clear.
Pt still hypoxic on HFNC, requiring NRB at times. He is DNR/DNI
Denies prior known history of lung disease, not known to be on Home oxygen.
Past Medical History
Past Medical History: Other (see list below)
Social History
Tobacco: Non-smoker
Alcohol: None
Drug: None
Family History
Family History: Reviewed & Not Pertinent
Allergies / Home Medications
Allergies
Allergy/AdvReac Type Severity Reaction Status Date / Time
No Known Allergies Allergy Verified 03/20/24 10:56
Home Medications
�Medication �Instructions �Recorded �Confirmed �Last Taken �Type
carbidopa 25 mg-levodopa 100 mg 1 tab PO TID Neurological Condition 03/19/24 03/20/24 Unknown History
tablet
levothyroxine 75 mcg tablet 75 mcg PO DAILY Thyroid 03/19/24 03/20/24 Unknown History
mirtazapine 15 mg tablet 15 mg PO HS Mental Health/Anxiety 03/19/24 03/20/24 Unknown History
acetaminophen 500 mg tablet 1,000 mg PO Q8HPRN PRN mild pain 03/20/24 03/20/24 Unknown History
(Tylenol Extra Strength)
atorvastatin 10 mg tablet (Lipitor) 10 mg PO HS High Cholesterol 03/20/24 03/20/24 Unknown History
carboxymethylcellulose 0.5 1 drp BOTH EYES HS Eye Condition 03/20/24 03/20/24 Unknown History
%-glycerin 0.9 % eye drops
(Refresh Optive)
cyanocobalamin (vitamin B-12) 5,000 mcg sublingual DAILY 03/20/24 03/20/24 Unknown History
5,000 mcg sublingual tablet Supplement
ondansetron HCl 4 mg tablet 4 mg PO Q6HPRN PRN nausea 03/20/24 03/20/24 Unknown History
Review of Systems
-
History Source: Patient
All other systems: Negative unless noted
Vitals / Labs / Diagnostic Testing
Vital Signs
Temp Pulse Resp BP Pulse Ox
98.6 F 101 45 148/84 91
03/23/24 11:36 03/23/24 10:00 03/23/24 10:00 03/23/24 10:00 03/23/24 10:00
Lab Data
03/23/24 03:58
03/23/24 03:58
Microbiology
03/23/24 04:13 Sputum Respiratory Culture - Final
03/23/24 04:13 Sputum Gram Stain - Final
03/19/24 21:19 Blood/Venous Blood Culture - Preliminary
No Growth in 72 hours- Final report to follow
03/20/24 17:42 Nose MRSA Screen - Final
No Methicillin Resistant Staphylococcus aureus isolated.
03/19/24 21:19 Blood/Venous Blood Culture - Preliminary
Coagulase neg. staphylococcus
03/19/24 21:19 Blood/Venous Gram Stain - Preliminary
Diagnostic Testing:
Physical Exam
-
HEENT: Normocephalic, Anicteric and Moist Mucous Membranes
Cardiovascular: S1/S2 and Regular Rhythm
Respiratory: Clear and Non-Labored Respirations
GI: Soft, Non Distended and Non Tender
Neurology: Awake, Alert and Other (nonverbal, not responding, following commands)
Skin: Warm, Dry and Good Color
General: Respiratory Distress (mild-mod), Poor Appetite and Other (ill appearing)
Assessment
-
Patient is a 68-year-old male with history of Parkinson's disease, dementia, presenting from the [place] [facility] for fevers and vomiting which started Saturday. In ER, patient had fever of 105.5F rectally, w/ audible cough, HR 140s, with sat 79% on RA.
Patient was found to be influenza positive, lactate 3.4. IVFs were ordered, patient placed on HFNC and admitted to IMU. CXR relatively clear. He is DNR/DNI. We are consulted for evaluation.
Acute hypoxic respiratory failure on HFNC/NRB
Acute influenza A
Leukopenia
Hypernatremia
Sepsis, procal 11
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
Dementia/memory impairment
Parkinson's disease
Hypothyroidism
BPH
Hypercholesteremia
Plan
Currently on HFNC, NRB for desaturation
No history of chronic O2 use at home
Prior history of lung disease is not noted
Hypoxemia seems out of proportion to findings thus far
CXR appears mostly clear
Would obtain CTA but unclear if patient able to transport given high requirements
Will obtain duplex of LE
No prior ECHO for review, no significant past history or records
ECHO pending, agree with
Flu A positive, on tamiflu
Overwhelming viral illness may not be sole cause
Procal 11, could be concurrent bacterial infection, agree with IV abx for now
Cultures are pending
UA negative
Speech eval would likely be helpful if MS improves
Dementia history, currently not answering/following commands
Given degree of hypoxemia, will add IV steroids
Check ABG
Overall prognosis seems poor given hypoxemia on background of Dementia, and NMD disease
He is DNR/DNI, ongoing discussions seem appropriate
We will follow
--- NOTE | 2024-03-23 13:55 | W.PN.CD ---
Today's Communication / Plan
-
Stay off Amio
Watch on tele
EKG with change in rhythm
Not sure we will add chronic treatment for AFib
Impression / Plan
-
68-year-old gentleman with Parkinson's disease and dementia, hypothyroidism presented with pneumonia and sepsis and noted to have atrial fibrillation with rapid ventricular response.
PAF
- Now in sinus
- Rates OK in sinus, was fast in AFib and ill
- Off Amio
- Not yet on anticoagulation
- CHADS2-VASc is at least 1 and possibly 2 (age1, ? hx HTN). Not on meds for HTN
Infection
- Influenza A
- Bloodx1 Coag neg staph
- On Tamiflu, ceftriaxone, and doxy
Parkinson's/dementia (brother reports fronto-temporal dementia, progressive
Hyperlipidemia, usually on statin
Physical Exam
Vital Signs/Labs
Vital Signs
Temp Pulse Resp BP Pulse Ox
98.6 F 101 45 148/84 91
03/23/24 11:36 03/23/24 10:00 03/23/24 10:00 03/23/24 10:00 03/23/24 10:00
03/23/24 03:58
03/23/24 03:58
Magnesium 2.3 mg/dl (1.6-2.3) 03/22/24 03:49
TSH 2.30 uIU/ml (0.47-4.68) 03/22/24 03:49
Physical Exam
Constitutional: No acute distress
EENT: Anicteric
Cardiovascular: Rhythm & rate is regular
Respiratory: Respiratory effort normal
GI: Soft
Data Reviewed
-
Date of Service: March 23, 2024
[2024-03-23 14:50] LABS: B.E. -0.1 mmol/L; HCO3 23.9 mmol/L (21-28); PCO2 36 mmHg (35-48); PO2 60 mmHg (83-108); pH 7.43 (7.35-7.45)
[2024-03-23] MEDS: DECADRON 4 MG IV ×2 (15:41→21:14)
[2024-03-23] MEDS: STERILE WATER FOR INJECTION 10 ML IV (15:42)
[2024-03-23] MEDS: ROCEPHIN 1000 MG IV (15:42)
[2024-03-23] MEDS: LEVOTHROID 60 MCG IV (17:23)
--- NOTE | 2024-03-23 17:32 | CM ---
Patient seen at bedside with brother present. Patient from [facility]. Patient advance directive is on chart per patient brother. Patient brother uncertain of next steps and concerned about patient pneumonia. CM will continue to follow for
discharge planning needs.
Plan; reach out to [facility] to confirm ability to accept.
[2024-03-23] MEDS: OFIRMEV 100 IV (19:31)
--- NOTE | 2024-03-23 19:40 | PTCARENOTE ---
Remains on high flow +NRB mask all day. POx 89-94% RR 30-50- ABG completed as ordered. NPO status maintained- freq oral care provided. Brother would like if we attempt po intake more aggressive- This RN explained pulm status tenuous unable to
safely feed at this time- speech will re eval. He was satisfied with daily checking. Restraints bilateral wrist intact- if loosened he will remove NRB mask and o2 sao2 will alarm drop as low as 69%. REcovers slowly. IV Decadron given as ordered-
then PRN IV Morphine 1mg for sob.
--- NOTE | 2024-03-23 20:45 | W.PN.UPDATE ---
Update Note
Progress Note Update
RN reported patient O2 sat dropped to 85-88% on NRM and High flow max. Fever 101, HR 110's. 38, BP 137/82. Tylenol 1g IV ordered. Morphine 1mg IV given. Patient seen and evaluated. rales B/l, tachypneic, trace to +1 edema Upper ext, RLE, voiding
without difficulties. report feeling SOB denies any chest pain
chest Xray results noted with small pleural effusion. K 3.3 AM
Lasix 20mg IV, kcl 20mg IV, Xopenex x1 now.
126/80 23, 90, 90% , 97.9
RN addressed lab results. Will d/c Current IV fluids. will order 1/2 NSS , BMP @ 1000
[2024-03-23] MEDS: LASIX 20 MG IV (20:54)
[2024-03-23] MEDS: XOPENEX 0.63 MG INHALANT SOLUTION INH (20:59)
[2024-03-23 21:09] LABS: NT-proBNP 1950 pg/ml
[2024-03-23] MEDS: KCL 260 MEQ IV (21:58)
[2024-03-24] VITALS (23 sets, daily range): BP systolic 109–146; BP diastolic 67–116; BMI 20.8
--- NOTE | 2024-03-24 00:17 | PTCARENOTE ---
Received Pt from Day RN. Pt SPO2 dropping to 80%, RR 45-50's labored. Pt currently on max high flow and NRB. HR in the 120's bp stable. Pt temp 101. Night MAGAZINE REPAIRER made aware, medications requested. Pt received Ofirmev, one time morphine, Lasix, Xopenex
treatment and KCL 20. Pt repositioned. Pt has no complaints of pain at this time. MAGAZINE REPAIRER at bed side. Pt remains max on high flow and NRB SPO2 86-88% at this time, RR 30's HR 90's bp stable. Pt continues to take high flow and NRB off, restrains remain
in place.
[2024-03-24] MEDS: MORPHINE SULFATE 1 MG IV (00:43)
[2024-03-24 04:44] LABS: Hematocrit 42.9 % (39.0-52.0); Hemoglobin 14.3 g/dL (13.0-18.0); Mean Corp Hgb Conc. 33.3 g/dL (33.0-37.0); Mean Corpuscular Hgb 32.3 pg (27.0-31.0); Mean Corpuscular Volume 96.8 fL (80.0-94.0); Mean Platelet Volume 11.8 fL (7.4-10.4); Platelet Count 180 10^3/uL (130-400); Red Blood Cell Count 4.43 10^6/uL (4.70-6.10); Red Cell Dist. Width 14.6 % (11.5-14.5); White Blood Cell Count 7.6 10^3/uL (4.8-10.8)
[2024-03-24 05:00] LABS: ALT (SGPT) 22 U/L (0-50); AST (SGOT) 72 U/L (17-59); Alkaline Phosphatase 103 U/L (38-126); Blood Urea Nitrogen 20 mg/dl (9-20); Calcium 7.9 mg/dl (8.4-10.2); Carbon Dioxide 25 mmol/L (22-30); Chloride 114 mmol/L (98-107); Estimated Creatinine Clearance 91 ml/min; Glucose 276 mg/dl (70-99); Potassium 5.6 mmol/L (3.5-5.1); Sodium 144 mmol/L (135-145); Total Bilirubin 1.3 mg/dl (0.2-1.3); Total Protein 4.5 g/dl (6.3-8.2); eGFR > 60.00
[2024-03-24 05:07] LABS: % Basophils 0.5 % (0-2); % Immature Granulocytes 0.4 % (0-0.5); % Lymphocytes 3.3 % (20.5-51.1); % Monocytes 2.6 % (1.7-9.3); % Neutrophils 93.2 % (42.2-75.2); Absolute Lymphocytes 0.3 10^3/uL (1.2-3.4); Absolute Monocytes 0.2 10^3/uL (0.1-0.6); Absolute Neutrophils 7.1 10^3/uL (1.4-6.5); Nucleated Red Blood Cells % 0 % (-)
[2024-03-24] MEDS: VIBRAMYCIN 260 MG IV ×2 (05:28→17:52)
[2024-03-24] MEDS: DECADRON 4 MG IV ×3 (05:28→21:21)
--- NOTE | 2024-03-24 06:53 | PTCARENOTE ---
Morning labs resulting K @ 5.6, Night RAIL CAR OPERATOR made aware.
--- NOTE | 2024-03-24 08:03 | W.PN.HOSP.TC ---
Addendum entered and electronically signed by Natalia Grey MD 03/24/24 19:08:
I saw and evaluated the patient independently. I reviewed the resident�s note and agree with findings and plan as documented by Dr. King.
GENERAL: chronically ill appearing male in resp distress breathing 45/min--not really able to speak
HEENT: NC/AT--HI DEBORAH + NRB mask
HEART: regular rate and rhythm, +S1, +S2, tachycardia
LUNGS : coarse BS bilaterally
ABDOM: soft, nontender, nondistended, + bowel sounds
EXT: no cyanosis, clubbing, or edema
NEUROLOGIC: apparent dementia and features c/w Parkinson's
Acute Hypoxic Respiratory Failure, secondary to Influenza A and presumed pneumonia (CXR on admission without definitive findings)--NOW on 100% HI DEBORAH with 50L and NRB mask--repeat CXR with significant worsening either progressive PNA or pulm
edema--procalcitonin on admission was elevated--ECHO with preserved EF--STAT pro BNP 1900--Continue ceftriaxone, doxycycline--consideration for diuresis or broadening ABX--apprec pulm--cont tamiflu
Sepsis, secondary to Influenza A vs. superimposed bacterial pneumonia--on admission leukopenic, bandemia, febrile, tachycardic, tachypneic, Flu +, COVID -S/p 2L of IVF--stop IV fluid--Sputum cultures resulted showing many squamous epithelial cells,
few white blood cells, and many mixed bacterial morphotypes.
Paroxysmal atrial fibrillation--off amio--apprec cards--holding on AC--Echocardiogram obtained on 03/23/2024 showed a normal left ventricular size, wall thickness and systolic function left ventricular ejection fraction was 55 to 60% by visual
assessment. Trace tricuspid regurgitation no aortic regurgitation. No mitral regurgitation--NO HX of CVA per pt brother
Dysphagia--Likely secondary to weakness from pneumonia and sepsis and Parkinson's with frontotemporal dementia--apprec speech--Will keep PO Tamiflu to be given with applesauce owing to essential nature of the medication-according to nurse tolerating
it okay.
Hypothyroidism--Synthroid
Hypercholesterolemia--Continue Lipitor
Frontotemporal Dementia w/ Parkinson symptoms--Continue carbidopa/levodopa --mirtazepine
BPH
DVT Proph - SC Heparin
Code Status - DNR
had family meeting (pulm had as well) re: critical condition and need for hospice--hospice met with family at 3PM--they are not ready to make pt comfort as there is more family coming tomorrow--explained that I believe he will pass quickly once O2
taken away after placed on comfort measures
will revisit in the AM
Original Note:
Today's Communication/Plan
-
Had family meetings in regards to the current status of the patient and poor prognosis. Education provided in regards to hospice and palliative care. Hospice consulted. Family will decide whether hospice would be what the patient desires and we will
move forward with hospice or further treatment.
Assessment / Plan
Assessment / Plan
Assessment/Plan:
-Acute Hypoxic Respiratory Failure, secondary to Influenza A and pneumonia
Currently requiring high flow oxygen at 50 L at 100% with nonrebreather mask
Most recent chest x-ray conducted on 03/23/2024 showed new marked bilateral widespread pulmonary alveolar opacification in comparison to recent prior study. Possible acute pulmonary edema but pneumonia cannot be excluded. Continue ceftriaxone,
doxycycline .
Day 5 of Tamiflu. Supportive care with IVF, Tylenol for fever.
-Sepsis, secondary to Influenza A vs. superimposed bacterial pneumonia
on admission leukopenic, bandemia, febrile, tachycardic, tachypneic, Flu +, COVID -.
Status post 2L of IVF, c/w IVF 100cc/hr
Continuing IV fluid support
Goal MAP above 65
-Probable CAP, secondary to Influenza A.
Serum procalcitonin elevated, CXR suggestive of possible consolidation in the LLL w/ bronchial breath sounds on exam. Follow-up chest x-ray conducted on 03/23/2024 showed new marked bilateral widespread pulmonary alveolar opacification in
comparison to that prior recent study. While the most likely differential diagnostic possibility would be acute pulmonary edema, pneumonia cannot be excluded
Ceftriaxone/Doxy x5d course for empiric tx of CAP.
Sputum cultures resulted showing many squamous epithelial cells, few white blood cells, and many mixed bacterial morphotypes.
-Paroxysmal atrial fibrillation
Now in sinus rhythm
[id number] score is at least 1
Amiodarone discontinued
Appreciate cardiology. They recommended watching the patient on telemetry, and they are debating whether to add chronic treatment for atrial fibrillation. Cardiology signed off.
Echocardiogram obtained on 03/23/2024 showed a normal left ventricular size, wall thickness and systolic function left ventricular ejection fraction was 55 to 60% by visual assessment. Trace tricuspid regurgitation no aortic regurgitation. No
mitral regurgitation.
-Lower Extremity DVT:
Peripheral vascular ultrasound conducted on 03/23/24 showed nonocclusive thrombus within the proximal/mid right femoral vein extending into the popliteal vein. The distal right femoral vein appears duplicated. Additionally there is occlusive
thrombus within the right posterior tibial vein. 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 There is additional nonocclusive thrombus within the left popliteal vein
Consideration of heparin dosing if patient opts for further treatment instead of hospice.
-Dysphagia
Likely secondary to weakness from pneumonia and sepsis
Evaluated by speech and deemed aspiration risk. Will try to alter medications to avoid aspiration risk.
Will keep PO Tamiflu to be given with applesauce owing to essential nature of the medication-according to nurse tolerating it okay.
-Hypothyroidism
home levothyroxine 75mcg
-Hypercholesterolemia
Continue Lipitor
-Frontotemporal Dementia w/ Parkinson symptoms:
Continue carbidopa/levodopa
-Memory Impairment/depression
continue mertazapine
-BPH:
Monitoring
Diet- NPO
DVT PPx - SC Heparin
Code Status - DNR
Anticipated Discharge: > 48 hours
Subjective/Interval History
-
Met with patient at the bedside. The patient is more awake today. He seems fatigued and is tachypneic.
Objective Data
-
Labs:
Laboratory Results
03/24/24 03/24/24
04:17 10:31
WBC 7.6
Hgb 14.3
Hct 42.9
Plt Count 180
Sodium 144 Pending
Potassium 5.6 H D Pending
Chloride 114 H Pending
Carbon Dioxide 25 Pending
BUN 20 Pending
Creatinine 0.6 L Pending
Glucose 276 H Pending
Calcium 7.9 L Pending
Total Bilirubin 1.3
AST 72 H
ALT 22
Alkaline Phosphatase 103
Vital Signs:
Vital Signs
Temp Pulse Resp BP Pulse Ox
98.1 F 94 36 116/68 86
03/24/24 07:55 03/24/24 06:00 03/24/24 06:00 03/24/24 06:00 03/24/24 06:00
I&O
03/23/24 03/24/24 03/25/24
06:59 06:59 06:59
Intake Total 1460 / 1460 2300 / 2300
Output Total 650 / 650 1850 / 1850
Balance 810 / 810 450 / 450
Review of Systems
-
Unable to obtain full review of systems at this time due to: Acuity
History Source: Patient
Physical Exam
-
General: Respiratory Distress, Appears Chronically Ill and Cachectic
HEENT: Normocephalic and Atraumatic
[2024-03-24] MEDS: HEPARIN 5000 UNITS SC ×2 (08:43→16:43)
[2024-03-24] MEDS: LASIX 40 MG IV (08:44)
[2024-03-24] MEDS: TAMIFLU PO ×2 (08:44→21:10)
--- NOTE | 2024-03-24 09:17 | W.PN.PUL3 ---
Today's Communication / Plan
-
Worsening CXR imaging, duplex with bilateral DVTs
IV heparin to be placed if family decides to continue medical care
We discussed his prognosis appears poor given his current state (severe hypoxemia, septic shock, VTE) in the background of underlying dementia/parkinsons
Hospice consult placed, he is DNR
Prolonged family mtgs today between myself and hospitalist team
Await further family decision making
Assessment
-
Patient is a 68-year-old male with history of Parkinson's disease, dementia, presenting from the longterm for fevers and vomiting which started Saturday. In ER, patient had fever of 105.5F rectally, w/ audible cough, HR 140s, with sat 79% on RA.
Patient was found to be influenza positive, lactate 3.4. IVFs were ordered, patient placed on HFNC and admitted to IMU. CXR relatively clear. He is DNR/DNI. We are consulted for evaluation.
Acute hypoxic respiratory failure on HFNC/NRB
Bilateral multifocal disease: PNA vs edema vs pneumonitis
Acute influenza A
Leukopenia
Hypernatremia
Sepsis, procal 11.43
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
Dementia/memory impairment
Parkinson's disease
Hypothyroidism
BPH
Hypercholesteremia
Plan
Currently on HFNC, NRB for desaturation
No history of chronic O2 use at home
Prior history of lung disease is not noted
Initial CXR appears mostly clear--repeat 03/23 showing severe bilateral infiltrates
Would obtain CTA but unclear if patient able to transport given high requirements--presume PE may be present
Will obtain duplex of LE--bilateral DVT, transition to IV heparin
No prior ECHO for review, no significant past history or records
ECHO obtained, stable findings, preserved EF
On levophed 03/22
Flu A positive, on tamiflu
Overwhelming viral illness may not be sole cause
Procal 11, could be concurrent bacterial infection, agree with IV abx for now
Cultures are pending
UA negative
We discussed possibility of bronchoscopy but patient is too high risk for anesthesia, intubation
Family agreed
Speech eval would likely be helpful if MS improves
Dementia history, currently not answering/following commands
Given degree of hypoxemia, continue IV steroids initiated 03/23
Check ABG--7.43/60- likely ARDS
Overall prognosis seems poor given hypoxemia on background of Dementia, and NMD disease
He is DNR/DNI, ongoing discussions seem appropriate
Extensive family discussion today (>50 mins) with 2 brothers separately, they are leaning towards comfort measures/hospice
Will await further decision making
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
Diagnostic Data
Chest X-Ray: 03/23/24- New marked bilateral widespread pulmonary alveolar opacification in comparison to recent prior study. Most likely differential diagnostic possibility would be acute pulmonary edema. Pneumonia cannot be excluded. Possible small
bilateral pleural effusions.
03/19/24- Probable mild left lower lobe atelectasis. Developing pneumonia cannot be excluded.
CT Scan:
US 03/23/24- There is nonocclusive thrombus within the proximal/mid right femoral vein extending into the popliteal vein. The distal right femoral vein appears duplicated. Additionally there is occlusive thrombus within the right posterior tibial
vein. 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 There is additional nonocclusive thrombus within the left popliteal vein
Echo: 03/23/24- Extremely technically limited study due to patient's respiratory status and tremors. Normal biventricular size and function. LVEF 55-60%. No significant valvular disease visualized. No prior study available for comparison.
PFT's:
Reports and relevant images were personally reviewed.
Total time spent on this consultation __65__ minutes which includes review of history, physical exam, medications, laboratory data, personal review of imaging, extensive review of outpatient records, discussion with care team and respiratory therapy.
Subjective Data
-
Date of Service:
Date of Service: March 24, 2024
Chief Complaint: Pulmonary Follow Up
Subjective:
Patient seen, remains on high o2 requirements
Brother at bedside
More awake today
Objective Data
Data Reviewed
Vital Signs / I&O / Oxygen:
Vital Signs
Temp Pulse Resp BP Pulse Ox
98.1 F 99 23 132/72 90
03/24/24 07:55 03/24/24 08:44 03/24/24 08:00 03/24/24 08:44 03/24/24 08:00
Intake and Output
03/23/24 03/24/24 03/25/24
06:59 06:59 06:59
Intake Total 1460 / 1460 2300 / 2300
Output Total 650 / 650 1850 / 1850
Balance 810 / 810 450 / 450
SaO2 90
Nasal Cannula flow liters per 50
minute
Physical Exam
General: Respiratory Distress (mild-mod), Comfortable, Poor Appetite and Other (ill appearing)
HEENT: Normocephalic, Anicteric and Moist Mucous Membranes
Cardiovascular: S1-S2 and Regular Rhythm
Respiratory: Crackles
GI: Soft, Non Distended and Non Tender
Neurology: Awake, Alert and Non Verbal (nodding yes/no)
Skin: Warm, Dry and Good Color
Labs/Micro/Reports
Lab Data
03/24/24 04:17
Laboratory Results
03/23/24
14:41
pH 7.43
pCO2 36
pO2 60 L
HCO3 23.9
O2 Delivery Level
Microbiology
03/19/24 21:19 Blood/Venous Blood Culture - Preliminary
No Growth in 4 days- Final report to follow
03/23/24 04:13 Sputum Respiratory Culture - Final
03/23/24 04:13 Sputum Gram Stain - Final
03/20/24 17:42 Nose MRSA Screen - Final
No Methicillin Resistant Staphylococcus aureus isolated.
03/19/24 21:19 Blood/Venous Blood Culture - Preliminary
Coagulase neg. staphylococcus
03/19/24 21:19 Blood/Venous Gram Stain - Preliminary
[2024-03-24 10:21] LABS: Blood Urea Nitrogen 23 mg/dl (9-20); Calcium 8.4 mg/dl (8.4-10.2); Carbon Dioxide 28 mmol/L (22-30); Chloride 116 mmol/L (98-107); Estimated Creatinine Clearance 91 ml/min; Glucose 131 mg/dl (70-99); Sodium 150 mmol/L (135-145); eGFR > 60.00
--- NOTE | 2024-03-24 11:29 | CHAP ---
Received a phone call from director of community services requesting Pastoral Care for Mr. Andrews, but when I introduced myself to him he declined the need for support at this time. Also declined a market development director visit. Will follow, especially when family is here to speak on
his behalf as it was clear he couldn't talk much with me at this time.
--- NOTE | 2024-03-24 11:36 | HOSPNOTE ---
Notified of hospice referral. Spoke to brother Rogelio. Will be meeting him at 3 pm today to discuss hospice. More information to follow.
--- NOTE | 2024-03-24 12:18 | W.PN.CD ---
Today's Communication / Plan
-
-
Stay off Amio
Watch on tele
EKG with change in rhythm
We will not add chronic treatment for AFib as we saw it only upon admit with acute illness and his [id number] is 1.
Cardiology will sign off
Please call with questions
Cardiology outpatient f/u is not needed
-
Impression / Plan
-
68-year-old gentleman with Parkinson's disease and dementia, hypothyroidism presented with pneumonia and sepsis and noted to have atrial fibrillation with rapid ventricular response.
PAF
- Still in sinus
- Rates OK in sinus, was fast in AFib and ill
- Still off Amio
- No plans to add anticoagulation or chronic treatment for AFib
- CHADS2-VASc is 1
- Patient's brother is not aware of a dx of HTN and there is no hx of HF, DM, Stroke, or vascular disease
- Watch for HTN and recurrent AFib that might suggest we add chronic treatment and add anticoagulation
Infection
- Influenza A
- Bloodx1 Coag neg staph
- On Tamiflu, ceftriaxone, and doxy
Parkinson's/dementia (brother reports fronto-temporal dementia, progressive
Hyperlipidemia, usually on statin
Physical Exam
Vital Signs/Labs
Vital Signs
Temp Pulse Resp BP Pulse Ox
98.5 F 99 23 132/72 94
03/24/24 11:10 03/24/24 08:44 03/24/24 08:00 03/24/24 08:44 03/24/24 11:30
03/24/24 04:17
03/24/24 09:20
Magnesium 2.3 mg/dl (1.6-2.3) 03/22/24 03:49
TSH 2.30 uIU/ml (0.47-4.68) 03/22/24 03:49
03/23/24
03:58
[id number] Pept 1950
Physical Exam
Constitutional: No acute distress
Cardiovascular: Rhythm & rate is regular and Pedal edema is absent
Respiratory: Respiratory effort normal and Lungs clear to auscul.
GI: Soft and Distention absent
Neuro/Psych: Alert (more alert than yesterday)
Data Reviewed
-
Date of Service: March 24, 2024
--- NOTE | 2024-03-24 14:31 | CM ---
Patient seen at bedside with family and discussion of hospice assessment reviewed. Nancy from [place] office visited and provided blanket and call to . CM will continue to follow for discharge planning needs.
Plan;hospice assessment today at 3pm
--- NOTE | 2024-03-24 15:00 | CHAP ---
Fr. Ceasar Pelletier of [facility] in [place] gave Zackery the Sacrament of the Sick and an Apostolic Pardon. Exact time uncertain.
[2024-03-24] MEDS: FLUSH (NSS) 2 FLUSH IV ×2 (15:09→16:45)
--- NOTE | 2024-03-24 15:12 | PTCARENOTE ---
Assumed care of pt this am after walking rounds. He is arousable but confused. He has soft wrist restraints as he takes oxygen off and desaturates to the 70% range. High flow at 50L 100%. Lungs coarse throughout with Loudness. Pt stiff with
movements and turns. Condom catheter is in place and pt urinating clear yellow urine. Brothers at bedside since early am and discussing plan of care. Manager Meat here for Patient's Sacrament 'Last rites' per their scientologist traditions.
--- NOTE | 2024-03-24 15:28 | HOSPNOTE ---
Long family meeting discussing comfort measures. Senior Loan Officer arrived and patient received last rites. Will await family decision.
[2024-03-24] MEDS: STERILE WATER FOR INJECTION 10 ML IV (16:43)
[2024-03-24] MEDS: ROCEPHIN 1000 MG IV (16:43)
[2024-03-24] MEDS: LEVOTHROID 60 MCG IV (17:51)
--- NOTE | 2024-03-24 19:19 | PTCARENOTE ---
Patient wants continued care through the night with current treatment and medications. They await visitors and will confirm tomorrow morning if they want transition to comfort/ hospice
[2024-03-25] VITALS (7 sets, daily range): BP systolic 110–142; BP diastolic 72–92
[2024-03-25] MEDS: HEPARIN 5000 UNITS SC (00:53)
[2024-03-25] MEDS: MORPHINE SULFATE 1 MG IV (04:04)
[2024-03-25 04:05] LABS: % Basophils 0.2 % (0-2); % Immature Granulocytes 0.5 % (0-0.5); % Lymphocytes 2.6 % (20.5-51.1); % Monocytes 3.1 % (1.7-9.3); % Neutrophils 93.6 % (42.2-75.2); Absolute Lymphocytes 0.2 10^3/uL (1.2-3.4); Absolute Monocytes 0.3 10^3/uL (0.1-0.6); Absolute Neutrophils 7.9 10^3/uL (1.4-6.5); Hematocrit 40.4 % (39.0-52.0); Hemoglobin 13.4 g/dL (13.0-18.0); Mean Corp Hgb Conc. 33.2 g/dL (33.0-37.0); Mean Corpuscular Hgb 32.1 pg (27.0-31.0); Mean Corpuscular Volume 96.9 fL (80.0-94.0); Mean Platelet Volume 11.7 fL (7.4-10.4); Nucleated Red Blood Cells % 0 % (-); Platelet Count 242 10^3/uL (130-400); Red Blood Cell Count 4.17 10^6/uL (4.70-6.10); Red Cell Dist. Width 14.8 % (11.5-14.5); White Blood Cell Count 8.4 10^3/uL (4.8-10.8)
[2024-03-25 04:29] LABS: ALT (SGPT) 44 U/L (0-50); AST (SGOT) 129 U/L (17-59); Albumin 2.2 g/dl (3.5-5.0); Alkaline Phosphatase 110 U/L (38-126); Blood Urea Nitrogen 33 mg/dl (9-20); Calcium 8.2 mg/dl (8.4-10.2); Carbon Dioxide 30 mmol/L (22-30); Chloride 116 mmol/L (98-107); Estimated Creatinine Clearance 91 ml/min; Glucose 129 mg/dl (70-99); Potassium 3.5 mmol/L (3.5-5.1); Sodium 152 mmol/L (135-145); Total Protein 4.8 g/dl (6.3-8.2); eGFR > 60.00
--- NOTE | 2024-03-25 06:06 | PTCARENOTE ---
Brother and family at bedside in the evening. Overnight patient continues to attempt to remove oxygen (NRB 15L + max HFNC);Pt slouches and moves down in bed. Desats to 70% on RA. Follows simple commands. Attempts to say name when asked, unable to
answer other questions. Flat affect. Repositioned Q2 hours and restraint checks Q2 hours. Heels floated. Tachypnea, RR 30-40s; PRN morphine IV per APR. NSR/ST. Afebrile. Foam on sacrum and bilateral elbows. Voiding straw/yellow urine in [place] cath.
HOB 30 degrees. Yankauer suction at bedside. Droplet precautions for +FLU. Bed alarm set. Rounding hourly.
[2024-03-25] MEDS: DECADRON 4 MG IV (06:22)
[2024-03-25] MEDS: VIBRAMYCIN 260 MG IV (06:23)
--- NOTE | 2024-03-25 07:19 | W.PN.HOSP.TC ---
Addendum entered and electronically signed by Natalia Grey MD 03/25/24 17:32:
I saw and evaluated the patient independently. I reviewed the resident�s note and agree with findings and plan as documented by Dr. King.
GENERAL: chronically ill appearing male in resp distress breathing 45/min--not really able to speak
HEENT: NC/AT--HI DEBORAH
HEART: regular rate and rhythm, +S1, +S2, tachycardia
LUNGS : coarse BS bilaterally, tachypneic
ABDOM: soft, nontender, nondistended, + bowel sounds
EXT: no cyanosis, clubbing, or edema
NEUROLOGIC: apparent dementia and features c/w Parkinson's
Acute Hypoxic Respiratory Failure, secondary to Influenza A and presumed pneumonia (CXR on admission without definitive findings)--on 100% HI DEBORAH with 50L--repeat CXR with significant worsening either progressive PNA or pulm edema--attempted to
diurese but made sodium worse--procalcitonin on admission was elevated--ECHO with preserved EF--STAT pro BNP 1900--stopping all treatments and placing pt on comfort measures after further discussion with family (accompanied by Dr. Nolan, CM,
residents)
Septic shock, secondary to Influenza A vs. superimposed bacterial pneumonia-- Flu +, S/p 2L of IVF--stop IV fluid as tried to diurese--Sputum cultures resulted showing many squamous epithelial cells, few white blood cells, and many mixed bacterial
morphotypes.
Paroxysmal atrial fibrillation--off amio--apprec cards--holding on AC--Echocardiogram obtained on 03/23/2024 showed a normal left ventricular size, wall thickness and systolic function left ventricular ejection fraction was 55 to 60% by visual
assessment. Trace tricuspid regurgitation no aortic regurgitation. No mitral regurgitation--NO HX of CVA per pt brother
Dysphagia--Likely secondary to weakness from pneumonia and sepsis and Parkinson's with frontotemporal dementia--apprec speech--Will keep PO Tamiflu to be given with applesauce owing to essential nature of the medication-according to nurse tolerating
it okay.
Hypothyroidism--Synthroid
Hypercholesterolemia--Continue Lipitor
Frontotemporal Dementia w/ Parkinson symptoms--Continue carbidopa/levodopa --mirtazepine
BPH
DVT Proph - SC Heparin
Code Status - DNR
03/24 had family meeting (pulm had as well) re: critical condition and need for hospice--hospice met with family at 3PM--they are not ready to make pt comfort as there is more family coming tomorrow--explained that I believe he will pass quickly once
O2 taken away after placed on comfort measures
03/25 AM, met again with family--ready for comfort measures
Original Note:
Today's Communication/Plan
-
Had another family meeting to discuss of care and patient hospital course. Family agreed for comfort care. Patient will be switched over to comfort care. Patient will continue on high flow oxygen and then will be taken off once patient is
comfortable.
Assessment / Plan
Assessment / Plan
Assessment/Plan:
-Acute Hypoxic Respiratory Failure, secondary to Influenza A and pneumonia
Currently requiring high flow oxygen at 50 L at 100% with nonrebreather mask
Most recent chest x-ray conducted on 03/23/2024 showed new marked bilateral widespread pulmonary alveolar opacification in comparison to recent prior study. Possible acute pulmonary edema but pneumonia cannot be excluded. Continue ceftriaxone,
doxycycline .
Tamiflu discontinued
-Sepsis, secondary to Influenza A vs. superimposed bacterial pneumonia
on admission leukopenic, bandemia, febrile, tachycardic, tachypneic, Flu +, COVID -.
Fever of 105.5 detected on 03/19/24
WBC low at 3.6 on 03/19/24
Respiratory rate was 37 on 03/19/24
Pulse was 145 on 03/19/24
Status post 2L of IVF, c/w IVF 100cc/hr
Continuing IV fluid support
Goal MAP above 65
-Probable CAP, secondary to Influenza A.
Serum procalcitonin elevated, CXR suggestive of possible consolidation in the LLL w/ bronchial breath sounds on exam. Follow-up chest x-ray conducted on 03/23/2024 showed new marked bilateral widespread pulmonary alveolar opacification in
comparison to that prior recent study. While the most likely differential diagnostic possibility would be acute pulmonary edema, pneumonia cannot be excluded
Ceftriaxone/Doxy x5d course for empiric tx of CAP.
Sputum cultures resulted showing many squamous epithelial cells, few white blood cells, and many mixed bacterial morphotypes.
-Paroxysmal atrial fibrillation
Now in sinus rhythm
[id number] score is at least 1
Amiodarone discontinued
Appreciate cardiology. They recommended watching the patient on telemetry, and they are debating whether to add chronic treatment for atrial fibrillation. Cardiology signed off.
Echocardiogram obtained on 03/23/2024 showed a normal left ventricular size, wall thickness and systolic function left ventricular ejection fraction was 55 to 60% by visual assessment. Trace tricuspid regurgitation no aortic regurgitation. No
mitral regurgitation.
-Lower Extremity DVT:
Peripheral vascular ultrasound conducted on 03/23/24 showed nonocclusive thrombus within the proximal/mid right femoral vein extending into the popliteal vein. The distal right femoral vein appears duplicated. Additionally there is occlusive
thrombus within the right posterior tibial vein. 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 There is additional nonocclusive thrombus within the left popliteal vein
Consideration of heparin dosing if patient opts for further treatment instead of hospice.
-Dysphagia
Likely secondary to weakness from pneumonia and sepsis
Evaluated by speech and deemed aspiration risk. Will try to alter medications to avoid aspiration risk.
Will keep PO Tamiflu to be given with applesauce owing to essential nature of the medication-according to nurse tolerating it okay.
-Hypothyroidism
home levothyroxine 75mcg
-Hypercholesterolemia
Continue Lipitor
-Frontotemporal Dementia w/ Parkinson symptoms:
Continue carbidopa/levodopa
-Memory Impairment/depression
continue mertazapine
-BPH:
Monitoring
Diet- NPO
DVT PPx - SC Heparin
Code Status - DNR
Anticipated Discharge: > 48 hours
Subjective/Interval History
-
Met with patient at the bedside. He continues to be tachypneic and appears uncomfortable. Struggles to respond to questions by nodding or shaking head. Seen slouched in bed with nonrebreather mask off face. Met with family and had a family
meeting in regards to treatment plan for this patient. Family was in agreement with comfort measures.
Emotional support provided to family.
Objective Data
-
Labs:
Laboratory Results
03/25/24
03:41
WBC 8.4
Hgb 13.4
Hct 40.4
Plt Count 242 D
Sodium 152 H
Potassium 3.5
Chloride 116 H
Carbon Dioxide 30
BUN 33 H
Creatinine 0.6 L
Glucose 129 H
Calcium 8.2 L
Total Bilirubin 1.0
AST 129 H
ALT 44
Alkaline Phosphatase 110
Vital Signs:
Vital Signs
Temp Pulse Resp BP Pulse Ox
97.6 F 84 21 127/78 98
03/25/24 05:07 03/25/24 06:00 03/25/24 06:00 03/25/24 06:00 03/25/24 06:00
I&O
03/24/24 03/25/24 03/26/24
06:59 06:59 06:59
Intake Total 2300 / 2300 520 / 520
Output Total 1850 / 1850 1974 / 1974
Balance 450 / 450 -1455 / -1455
Review of Systems
-
Unable to obtain full review of systems at this time due to: Acuity
Physical Exam
-
General: Appears in Distress, Appears Chronically Ill and Cachectic
HEENT: Normocephalic and Atraumatic
Respiratory: Crackles
Cardiac: Regular Rhythm and S1/S2
Breast: Deferred by me
GI: Soft, Nontender, Nondistended and Normal Bowel Sounds
Genito-urinary: Deferred by me
Musculoskeletal: No Clubbing, No Cyanosis and No Edema
Skin: Warm and Dry
--- NOTE | 2024-03-25 09:00 | PTCARENOTE ---
Family in room at bedside. Removed bilateral wrist restraints with family in room. Patient on high flow oxygen 50L 100% with non-rebreather PRN. Currently pulse ox 96% with high flow only. Family to make decision today about transfer to Hospice.
Patient awake and alert, answers simple questions with nodding of the head. Patient appears comfortable. Last BP 142/76,103,34 afebrile.
--- NOTE | 2024-03-25 09:09 | W.PN.PUL3 ---
Today's Communication / Plan
-
Discussed GOC with family again today including process of comfort measures
Full care team present w/ hospice
They were in agreement to move towards comfort, orders to be placed
Patient overall clinically unchanged, remains on max HFNC settings
Prognosis snf is poor
Comfort measures are placed, we will sign off at this time. Pls call with questions
Assessment
-
Patient is a 68-year-old male with history of Parkinson's disease, dementia, presenting from the [facility] for fevers and vomiting which started Saturday. In ER, patient had fever of 105.5F rectally, w/ audible cough, HR 140s, with sat 79% on RA.
Patient was found to be influenza positive, lactate 3.4. IVFs were ordered, patient placed on HFNC and admitted to IMU. CXR relatively clear. He is DNR/DNI. We are consulted for evaluation.
Acute hypoxic respiratory failure on HFNC/NRB
Bilateral multifocal disease: PNA vs edema vs pneumonitis
Acute influenza A
Leukopenia
Hypernatremia
Sepsis, procal 11.43
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
Dementia/memory impairment
Parkinson's disease
Hypothyroidism
BPH
Hypercholesteremia
Plan
Currently on HFNC, NRB for desaturation
No history of chronic O2 use at home
Prior history of lung disease is not noted
Initial CXR appears mostly clear--repeat 03/23 showing severe bilateral infiltrates
Would obtain CTA but unclear if patient able to transport given high requirements--presume PE may be present
Duplex of LE--bilateral DVT, transition to IV heparin
No prior ECHO for review, no significant past history or records
ECHO obtained, stable findings, preserved EF
On levophed 03/22
Flu A positive, on tamiflu
Overwhelming viral illness may not be sole cause
Procal 11, could be concurrent bacterial infection, agree with IV abx for now
Cultures are negative but sputum was over-contaminated
UA negative
We discussed possibility of bronchoscopy but patient is too high risk for anesthesia, intubation
Family agreed
Speech eval would likely be helpful if MS improves
Dementia history, currently not answering/following commands
Given degree of hypoxemia, continue IV steroids initiated 03/23
Check ABG--7.43/36/60- likely ARDS
Overall prognosis seems poor given hypoxemia on background of Dementia, and NMD disease
He is DNR/DNI, ongoing discussions seem appropriate
Extensive family discussion today (>50 mins) with 2 brothers separately, they are leaning towards comfort measures/hospice
Prognosis snf is poor
Discussed with family again today wtih full care team including hospice, family will move towards comfort measures today
Diagnostic Data
Chest X-Ray: 03/23/24- New marked bilateral widespread pulmonary alveolar opacification in comparison to recent prior study. Most likely differential diagnostic possibility would be acute pulmonary edema. Pneumonia cannot be excluded. Possible small
bilateral pleural effusions.
03/19/24- Probable mild left lower lobe atelectasis. Developing pneumonia cannot be excluded.
CT Scan:
US 03/23/24- There is nonocclusive thrombus within the proximal/mid right femoral vein extending into the popliteal vein. The distal right femoral vein appears duplicated. Additionally there is occlusive thrombus within the right posterior tibial
vein. 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 There is additional nonocclusive thrombus within the left popliteal vein
Echo: 03/23/24- Extremely technically limited study due to patient's respiratory status and tremors. Normal biventricular size and function. LVEF 55-60%. No significant valvular disease visualized. No prior study available for comparison.
PFT's:
Reports and relevant images were personally reviewed.
Total time spent on this encounter __56__ minutes which includes review of history, physical exam, medications, laboratory data, personal review of imaging, extensive review of outpatient records, discussion with care team and respiratory therapy.
Subjective Data
-
Date of Service:
Date of Service: March 25, 2024
Chief Complaint: Pulmonary Follow Up
Subjective:
Remains clinically unchanged, now on HFNC 100%/50LPM
Family present, moving to comfort measures
Objective Data
Data Reviewed
Vital Signs / I&O / Oxygen:
Vital Signs
Temp Pulse Resp BP Pulse Ox
97.8 F 84 21 127/78 93
03/25/24 08:33 03/25/24 06:00 03/25/24 06:00 03/25/24 06:00 03/25/24 07:52
Intake and Output
03/24/24 03/25/24 03/26/24
06:59 06:59 06:59
Intake Total 2300 / 2300 520 / 520
Output Total 1850 / 1850 1974 / 1974
Balance 450 / 450 -1455 / -1455
SaO2 93
Nasal Cannula flow liters per 50
minute
Physical Exam
General: Respiratory Distress (mild-mod), Comfortable, Poor Appetite and Other (ill appearing)
HEENT: Normocephalic, Anicteric and Moist Mucous Membranes
Cardiovascular: S1-S2 and Regular Rhythm
Respiratory: Crackles
GI: Soft, Non Distended and Non Tender
Neurology: Awake, Alert and Non Verbal (nodding yes/no)
Skin: Warm, Dry and Good Color
Labs/Micro/Reports
Lab Data
03/25/24 07:19
03/25/24 07:19
Microbiology
03/19/24 21:19 Blood/Venous Blood Culture - Final
No Growth - Final Report
03/23/24 04:13 Sputum Respiratory Culture - Final
03/23/24 04:13 Sputum Gram Stain - Final
03/20/24 17:42 Nose MRSA Screen - Final
No Methicillin Resistant Staphylococcus aureus isolated.
03/19/24 21:19 Blood/Venous Blood Culture - Preliminary
Coagulase neg. staphylococcus
03/19/24 21:19 Blood/Venous Gram Stain - Preliminary
--- NOTE | 2024-03-25 09:14 | CM ---
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 CM will continue to follow for discharge planning needs.
Plan; comfort care
--- NOTE | 2024-03-25 09:42 | PN.CDI ---
CDI
- -
CDI:
Physician Documentation Request
Admit Date: 03/19/24 21:38
Dear Doctor Fernando,
Patient admitted with Sepsis, secondary to Influenza A vs. superimposed bacterial pneumonia as well as Acute hypoxic respiratory failure.
03/19 lactic acid 3.4
03/22 LOCOMOTIVE ELECTRICIAN note states 'Patient noted in uncontrolled afib with rates upwards of 180. Cardizem infusion added with no effect and with bp also going from 110s systolic to 80s systolic. iVF increased to 200 ml/hr. Changed cardizem to amiodorone infusion
and added Levophed for bp support.
Please clarify which of the following most accurately describes the status of the patient's infection:
Sepsis
- Systemic manifestations of infection, with 2 or more SIRS criteria which include:
- Fever >100.4 degrees F or hypothermia < 96.8 degrees F
- Leukocytosis - WBC > 12,000 or leukopenia - WBC < 4,000 or > 10% bands
- Tachycardia > 90 beats per minute
- Tachypnea - RR > 20 breaths per minute or PaCO2 , 32mmHg
Source: Merck Manual 2013
Severe Sepsis
- Sepsis with associated acute organ dysfunction, such as renal or respiratory failure
Septic Shock
- Severe sepsis associated with circulatory failure, evidenced by hypotension and hypoperfusion
Other
Use of terms such as suspected, likely, concern for, or probable (associated with a specific diagnosis that is being evaluated, monitored, or treated as if it exists) are acceptable and can be coded in the inpatient setting, when documented at the
time of discharge.
Thank you,
Aleyda Turner RN, BSN
CDI Specialist
tiger text
Please use your independent medical judgment in providing your response.
--- NOTE | 2024-03-25 10:54 | HOSPNOTE ---
Met with family and they are in agreement with comfort measures. Patient will be medicated with morphine and ativan and then transition to a drip. Patient continues on high flow oxygen and will be taken off once patient is comfortable. Emotional
support provided to family. Patient had [facility] yesterday. Family will remain at bedside. I will continue to support.
[2024-03-25] MEDS: HEPARIN SC (11:46)
[2024-03-25] MEDS: MORPHINE SULFATE 2 MG IV ×4 (11:47→20:31)
[2024-03-25] MEDS: FLUSH (NSS) 1 FLUSH IV ×2 (11:50→17:42)
[2024-03-25] MEDS: ATIVAN 1 MG IV ×3 (11:51→20:37)
[2024-03-25] MEDS: NSS (PRESERVATIVE FREE) 0.5 ML IV ×2 (11:51→15:24)
[2024-03-25] MEDS: MORPHINE 100 IV (12:41)
--- NOTE | 2024-03-25 14:06 | PTCARENOTE ---
Patient is now on comfort care. Patient on morphine sulfate drip at 2mg/mls/hr as per MD order. Prior medicated patient with 2mg IV morphine and 1mg IV ativan. Once drip started high flow oxygen discontinued and patient on 6L 02 n/c for comfort
which will be weaned down. Patient bathed and turned and repositioned for comfort. Patient comfortable with respirations down to mid 20's. Family in room at bedside. Emotional support provided.
--- NOTE | 2024-03-25 14:32 | CM ---
met with patient family and physicians to review discussion on Comfort Care/Hospice. Plan for patient to transition to comfort care today s/p discussion today. CM will continue to follow for discharge planning needs.
Plan; comfort care
[2024-03-25] MEDS: ROBINUL 0.2 MG IV (17:42)
--- NOTE | 2024-03-25 23:29 | PTCARENOTE ---
Family at bedside; (brothers & sister in laws). Morphine gtt continues per the MAR/worklist. Pt medicated for breakthrough pain PRN as ordered. Respirations even and unlabored, RR 20s. Comfort snack tray given. Family thankful for care. Rounding Q1
hour.
--- NOTE | 2024-03-26 06:20 | PTCARENOTE ---
Patient's heart rate
--- NOTE | 2024-03-26 06:21 | PTCARENOTE ---
Patient without a heart beat and not breathing. LAVONNE Meyer made aware and pronounced at bedside. Tele strip saved and placed in chart. Brothers Rogelio and Stas present. Morphine gtt stopped. Brothers currently at bedside and will notify staff when
they are leaving. Educated on post-mortem process. Report given to KIZZY Turner.
--- NOTE | 2024-03-26 06:50 | W.PN.DEATH ---
Pronouncement of
-
Called to see patient to pronounce.
No spontaneous heart tones or respirations noted.
Patient not responsive to verbal stimuli.
Patient is pronounced .
Time of : 06:40
Date of : 03/26/24
Cause of : Acute Hypoxic Respiratory Failure, Influenza A, septic shock, Paroxysmal atrial fibrillation, Dementia, Parkinson's disease
Family Notified: Yes (Family at bedside )
--- NOTE | 2024-03-26 08:16 | PTCARENOTE ---
Pt at 0640 am . Morphine gtt wasted, GOL notified, post mortem care done. . Family was at bedside but left about 0745am
--- NOTE | 2024-03-26 08:58 | CM ---
Patient and family at bedside per physician. CM available for needs.
Plan;
--- NOTE | 2024-03-26 16:17 | W.DCSUMMARY ---
Addendum entered and electronically signed by Natalia Grey MD 03/27/24 07:05:
Read, reviewed, and agree. See same day progress note for additional details. Time spent coordinating care, DC planning, review of DC plan of care with resident, transition of care, review of records in EMR, med rec, consults, notes, d/w
consultants, nursing, family, and CM = 33 minutes
Original Note:
Discharge Summary
Discharge Data
Date of Admission: 03/19/24
Date of Discharge: 03/26/24
-
Pending Results: No
Hospital Course
Patient is a 68-year-old male who was sent to the emergency department from [facility] with a fever of 100.2, vomiting, weakness, rigors which started 5 days prior to his presentation. He had 4 episodes of vomiting on the Saturday prior to
his presentation. Patient has a history of hypothyroidism, BPH, mild neurocognitive disorder, and Parkinson's. The patient was able to nod his head yet was unable to give a history in the emergency department. The patient was not ambulatory. His
brother was at the bedside. He had obvious rigors and was found to have a fever of 105 rectally. His pulse was elevated at 116, his respiration elevated at 31, his blood pressure elevated at 138/77. He was not given Tylenol or Motrin prior to his
arrival. Tylenol was given rectally as he was unable to swallow properly. He had an audible cough but denies shortness of breath even though he was tachycardic and hypoxic. He was found to be influenza positive with a white count of 3.6 and his
lactate was found to be 3.4 with an elevated BUN of 27. Sepsis fluids were initiated. Oseltamavir was initiated. High flow nasal cannula was initiated with a flow rate of 40 L/min, measured FiO2 of 98, and oxygen saturation percent of 93%. The
patient was admitted to [facility] for acute hypoxic respiratory failure and septic shock.
Ceftriaxone was initiated along with doxycycline for empiric treatment for community-acquired pneumonia. IV fluid support was continued and sputum culture sent. X-rays conducted showed left lower lobe opacity. Procalcitonin was 11+. Levophed was
also initiated as blood pressure dipped to 87/71 with a heart rate in the 130s. Cardizem infusion added little to no effect and IVF was increased. Cardizem was changed to amiodarone during the addition of Levophed. Cardiology was consulted for
atrial fibrillation. The patient converted into sinus rhythm after the initiation of amiodarone. Echocardiogram conducted on 03/23/2024 had a left ventricular ejection fraction of 55 to 60% with no significant valvular disease visualized.
Throughout the treatment the patient's status continued to decline and the patient required high flow oxygen at 50 L at 100% with a nonrebreather mask. A new chest x-ray on 03/23/2024 showed new marked bilateral widespread pulmonary alveolar
opacification in comparison to his most recent x-ray. IV antibiotics were continued, Tamiflu continued, and IV steroids were added and ABG conducted had a low pO2 of 60 and oxygen saturation of 93%. The patient continued to decline and appeared
more and more fatigued. The patient's prognosis was poor and a family discussion was initiated in regards to goals of care. Family decided to focus patient goal of care on comfort and dignity. Anxiolytic and pain medications were initiated for
palliative care.
The patient on 03/26/2024 at 6:40 AM with the family at the bedside. Family stated that the patient was comfortable. Emotional support was given to the family. The patient's cause of was acute hypoxemic respiratory failure, influenza
A, septic shock, paroxysmal atrial fibrillation, dementia, and Parkinson's disease.
Discharge Plan
-
Patient Disposition:
Date/Time
Date/Time: 03/26/24 06:40
Discharge Date and Time
Discharge Date/Time: 03/26/24 06:40
Print Language: MACEDONIAN
== END 2024-03-26 06:40 | disposition expired | DRG 871 ==
LOC: IMU 21:38
PROVIDERS: Internal Medicine; Nurse Practitioner; Nurse Practitioner Gerontology; ADMITTING PHYSICIAN Hospitalist; ATTENDING PHYSICIAN Internal Medicine; EMERGENCY PHYSICIAN Emergency Medicine; FAMILY PHYSICIAN Internal Medicine; OTHER PHYSICIAN Internal Medicine; OTHER PHYSICIAN Internal Medicine Cardiovascular Disease
PROC: 5A0935A Assistance with Respiratory Ventilation, Less than 24 Consecutive Hours, High Flow/Velocity Cannula (ICD-10-PCS; 2024-03-20)
DX: A41.89 Other specified sepsis (principal); J10.00 Influenza due to other identified influenza virus with unspecified type of pneumonia; J96.01 Acute respiratory failure with hypoxia; R65.21 Severe sepsis with septic shock; J15.9 Unspecified bacterial pneumonia; F02.84 Dementia in other diseases classified elsewhere, unspecified severity, with anxiety; E87.0 Hyperosmolality and hypernatremia; I82.411 Acute embolism and thrombosis of right femoral vein; G20.A1 Parkinson's disease without dyskinesia, without mention of fluctuations; I10 Essential (primary) hypertension; I48.0 Paroxysmal atrial fibrillation; E78.00 Pure hypercholesterolemia, unspecified; E03.9 Hypothyroidism, unspecified; D72.819 Decreased white blood cell count, unspecified; N40.0 Benign prostatic hyperplasia without lower urinary tract symptoms; Z51.5 Encounter for palliative care; Z66 Do not resuscitate; Z79.890 Hormone replacement therapy; Z20.822 Contact with and (suspected) exposure to COVID-19
CPT/HCPCS: 36600; 71045; 80048; 80053; 82805; 82962; 83605; 83735; 83880; 84145; 84436; 84443; 85025; 87040; 87070; 87205; 87502; 87811; 92610; 93005; 93306; 93970; 94640; 99285